=== PATIENT | male | born 1960 | race Caucasian/White ===

== ENCOUNTER 2023-10-05 16:27 | Inpatient (IN) ==
--- NOTE | 2023-10-05 16:59 | Emergency Department Note ---
History of Present Illness General Chief complaint: Illness Stated complaint: LETHARGIC, UNBALANCED, NOT MAKING SENSE Time Seen by Provider: 10/05/23 16:35 Source: family () History of Present Illness Provider complaint: Fever altered mental status Onset (ago): day(s) 1 62-year-old male presents emergency department for fever and altered mental status. reports that the patient has been having increasing fever and confusion since Sunday. She reports that the patient has been having cough and difficulty breathing. No falls or traumas. 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 No hemoptysis. No nausea or vomiting. No diarrhea. Past Med/Surg History Medical History No pertinent past medical history No pertinent family history Surgical History No pertinent past surgical history Social History Smoking Status: Current some day smoker Feels Safe at Home: Yes Physical Exam Vital Signs Vital Signs - 24 hr 10/05/23 16:31 10/05/23 16:31 10/05/23 16:35 Temperature 40.6 C H Temperature Source Oral Pulse Rate 111 H Respiratory Rate 28 H Respiratory Depth Shallow Blood Pressure 122/89 Blood Pressure Mean 100 Pulse Oximetry 89 L 89 L 94 Oxygen Delivery Method Room Air Room Air Oxymask Oxygen Flow Rate 4 Sepsis Recent Fever Within 48 Hours No Sepsis New/Unexplained Change in Mental Status Yes Sepsis Action Taken by Nursing No Action Required 10/05/23 16:35 10/05/23 17:55 Temperature Temperature Source Pulse Rate 95 H Respiratory Rate Respiratory Depth Normal Blood Pressure Blood Pressure Mean Pulse Oximetry 94 Oxygen Delivery Method Oxymask Oxygen Flow Rate 4 Sepsis Recent Fever Within 48 Hours Sepsis New/Unexplained Change in Mental Status Sepsis Action Taken by Nursing Physical Exam GENERAL: Ill-appearing HENT: Exam performed. - Head: Normocephalic and atraumatic. EYES: Conjunctivae and EOM are normal. Pupils are equal, round, and reactive to light. Right eye exhibits no discharge. Left eye exhibits no discharge. No scleral icterus. NECK: Normal range of motion. Neck supple. No JVD present. No carotid bruit present. No rigidity. No tracheal deviation and normal range of motion present. CV: Normal rate, regular rhythm, normal heart sounds and intact distal pulses. There is no peripheral edema. Palpable radial pulses bue. PULM/CHEST: Rhonchi bilaterally. Diminished breath sounds over the right. ABD: The abdomen is soft. There is no tenderness. There is no rebound, no guarding NEURO: Patient is slow to respond to questions but is alert and oriented x 3. Patient does have some mild dysarthria. Difficulty ambulating. Sensation intact. Course Course 1635: The patient was evaluated in room C10. A complete history and physical exam was performed Cardiac monitoring: An order was placed for continuous cardiac monitoring. The monitor shows a rate of 110 with sinus tachycardia rhythm interpreted by me Patient hypoxic on room air. Supplemental oxygen was applied to the patient. Sepsis protocols were initiated. IV fluids and IV Tylenol ordered for the patient. 1745: Vital signs stable supplemental oxygen. Labs show lactic acid within normal limits. Leukocytosis 17. Sodium 126. Chest x-ray does diminish her right sided infiltrate. Patient will be treated with Rocephin and azithromycin IV. 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 Patient will be admitted to the medicine service. 1803: Vital signs stable supplemental oxygen. [facility] hospitalist Leeann zhang working with Dr. Church made aware of patient. Administered Medications Azithromycin 500 mg/ Dextrose 255 mls @ 127.5 mls/hr IV NOW STA Stop: 10/05/23 19:23 Last Admin: 10/05/23 17:53 Dose: 127.5 mls/hr Documented By: CHRIS Discontinued Medications Acetaminophen (Ofirmev) 1,000 mg in 100 mls @ 400 mls/hr IV NOW STA Stop: 10/05/23 16:50 Last Infusion: 10/05/23 18:01 Dose: Infused Documented By: Admin: 10/05/23 17:02 Dose: 400 mls/hr Documented By: CHETAN Sodium Chloride (Nss) 1,000 mls @ 999 mls/hr IV .Q1H1M ONE Stop: 10/05/23 17:36 Last Admin: 10/05/23 17:02 Dose: 999 mls/hr Documented By: CHETAN Ceftriaxone Sodium (Rocephin) 2,000 mg in 50 mls @ 100 mls/hr IV NOW STA Stop: 10/05/23 17:53 Last Admin: 10/05/23 17:54 Dose: 100 mls/hr Documented By: CHRIS Critical Care Time Critical Care Time: Yes Total Critical Care Time: 61 I have personally spent greater than 61 minutes of critical care time in the direct management of this patient. This includes bedside care, interpretation of diagnostic studies, and testing, discussion with consultants, patient, and family members, and other required patient management activities. This 61 minutes is in excess of all separately billable procedures. Medical Decision Making Laboratory Data Attestation: I reviewed the patient's lab results. 10/05/23 16:48 10/05/23 16:48 Lab Results 10/05/23 10/05/23 Range/Units 16:48 16:49 WBC 17.26 H (4.8-10.8) K/ul RBC 4.87 (4.70-6.10) M/uL Hgb 14.5 (14.0-18.0) g/dl Hct 40.6 L (42.0-52.0) % MCV 83.4 (80.0-100.0) fL MCH 29.8 (25.0-34.0) pg MCHC 35.7 (32.0-36.0) g/dL RDW Std Deviation 41.2 (36.4-46.3) fL RDW Coeff of Hunter 13.5 (11.5-14.5) % Plt Count 211 (130-400) K/uL MPV 10.7 (9.4-12.4) fL Immature Gran % (Auto) 2.0 % Neut % (Auto) 92.2 % Lymph % (Auto) 3.2 % Mcculloch % (Auto) 1.7 % Eos % (Auto) 0.4 % Baso % (Auto) 0.5 % Neut # (Auto) 15.91 H (1.40-6.50) K/uL Lymph # (Auto) 0.56 L (1.20-3.40) K/uL Mcculloch # (Auto) 0.29 (0.11-0.59) K/uL Eos # (Auto) 0.07 (0.00-0.50) K/uL Baso # (Auto) 0.09 (0.00-0.20) K/uL Immature Gran # (Auto) 0.34 H (0.01-0.20) K/uL Toxic Vacuolation 2+ PT 11.8 (9.0-12.0) Seconds INR 1.1 (0.9-1.1) APTT 34 H (21-31) Seconds PTT Ratio 1.3 VBG pH 7.45 H (7.36-7.41) VBG pCO2 33 L (38-50) mmHg VBG pO2 32 mmHg VBG HCO3 23 mmol/L VBG O2 Saturation 61.1 % VBG Base Excess -0.4 mEq/L Sodium 126 L (136-145) mmol/L Potassium 3.6 (3.5-5.1) mmol/L Chloride 92 L (98-107) mmol/L Carbon Dioxide 23 (21-32) mmol/L Anion Gap 11 (3-11) BUN 21 (6-23) mg/dl Creatinine 1.25 (0.6-1.4) mg/dl Est Cr Clr Drug Dosing 62.8 ml/min Est GFR ( Amer) 71.6 ml/min Est GFR (Non-Af Amer) 61.8 ml/min BUN/Creatinine Ratio 16.8 (10-20) Glucose 137 H (70-99(Fasting)) mg/dl Lactate 2.0 (0.4-2.0) mmol/L Calcium 8.6 (8.6-10.3) mg/dl Magnesium 2.0 (1.7-2.4) mg/dl Total Bilirubin 0.7 (0.2-1.0) mg/dl Direct Bilirubin 0.3 H (0-0.2) mg/dl AST 71 H (13-39) U/L ALT 35 (7-52) U/L Alkaline Phosphatase 49 (34-104) U/L Troponin I High Sens 68.1 H* (0-20) pg/ml Total Protein 7.4 (6.0-8.3) gm/dl Albumin 3.6 (3.4-5.0) gm/dl Urine Color Dark Yellow Urine Appearance Cloudy A (Clear) Urine pH 5.5 (4.5-7.5) Ur Specific [place] 1.026 (1.000-1.030) Urine Protein 3+ H (Negative) Urine Glucose (UA) Negative (Negative) Urine Ketones Trace H (Negative) Urine Blood 3+ H (Negative) Urine Nitrite Negative (Negative) Urine Bilirubin 1+ H (Negative) Urine Urobilinogen Negative (Negative) Ur Leukocyte Esterase Negative (Negative) Urine WBC (Auto) 0-5 (0-5) /hpf Urine RBC (Auto) 6-10 H (0-2) /hpf U Hyaline Cast (Auto) 3-5 H (0-2) /lpf U Epithel Cells (Auto) 0-2 (0-2) /hpf Urine Bacteria (Auto) None Seen (None Seen) Hyaline Casts Present A (None Presnt) /lpf Urine Mucus Present A (None Prsent) Anaplasma Smear See Comment Babesia Smear See Comment Imaging Data Attestation: I personally reviewed and interpreted this imaging study as follows: My Impression: Chest x-ray: Right lower lobe infiltrate Radiologist's Impression: Chest X-Ray 10/05/23 16:35 SINGLE VIEW CHEST CLINICAL HISTORY: Sepsis. FINDINGS: An AP, portable, upright chest radiograph is obtained. No prior studies are available for comparison at the time of dictation. The heart is enlarged noting atherosclerotic calcification of the thoracic aorta. There is pulmonary vascular congestion. There is airspace consolidation at the right lung base. No large pleural effusion or pneumothorax is seen. The bony thorax is grossly intact. IMPRESSION: 1. Airspace consolidation at the right lung base is typical for pneumonia/aspiration pneumonitis. Clinical correlation will be required and radiographic follow-up to resolution is recommended. 2. Cardiomegaly with pulmonary vascular congestion. ACT 112: Negative or not required by law. Electronically signed by: Mannie Maurer M.D. 10/05/2023 5:[address] 10/05/23 16:55 CT SCAN OF THE BRAIN WITHOUT IV CONTRAST CLINICAL HISTORY: Change in mental status. Lethargy. COMPARISON STUDY: No priors. TECHNIQUE: Unenhanced axial CT scan of the brain is performed from the vertex to the skull base. A dose lowering technique was utilized adhering to the principles of ALARA. CT DOSE: 625.8 mGy.cm FINDINGS: Brain parenchyma: There is age-related involutional change noting mild subcortical and periventricular microangiopathic disease. There is no hemorrhage, mass effect, or evidence of acute territorial ischemia by CT criteria. Huerta-white matter differentiation is preserved. No extra-axial fluid collection is seen. Ventricles, sulci, cisterns: Prominent secondary to involutional change. Intracranial vasculature: There is atherosclerotic calcification of the cavernous carotid arteries. Calvarium: Unremarkable. Sinuses and mastoids: There is mild mucosal thickening within the ethmoid sinuses. The remaining visualized paranasal sinuses are clear. The mastoid air cells are well pneumatized. Orbits: The bony orbits are grossly intact. IMPRESSION: There is no hemorrhage, mass effect, or evidence of acute territorial ischemia by CT criteria. ACT 112: Negative or not required by law. Electronically signed by: Mannie Maurer M.D. 10/05/2023 5:33 PM ECG Data Attestation: I personally reviewed and interpreted this ECG as follows: Rate (beats per minute): 93 Rhythm: + normal sinus ECG Intervals/blocks: + Normal QRS, + Normal CO and + Normal QT-c ECG ST segments: + Normal ST segments MDM Narrative 1635: The patient was evaluated in room C10. A complete history and physical exam was performed Cardiac monitoring: An order was placed for continuous cardiac monitoring. The monitor shows a rate of 110 with sinus tachycardia rhythm interpreted by me Patient hypoxic on room air. Supplemental oxygen was applied to the patient. Sepsis protocols were initiated. IV fluids and IV Tylenol ordered for the patient. 1745: Vital signs stable supplemental oxygen. Labs show lactic acid within normal limits. Leukocytosis 17. Sodium 126. Chest x-ray does diminish her right sided infiltrate. Patient will be treated with Rocephin and azithromycin IV. 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 Patient will be admitted to the medicine service. 1803: Vital signs stable supplemental oxygen. [facility] hospitalist Leeann zhang working with Dr. Church made aware of patient. Impression & Plan Hypoxia, Pneumonia, Acute hyponatremia, Elevated troponin Discharge Plan Visit Data Chief Complaint: Illness Stated Complaint: LETHARGIC, UNBALANCED, NOT MAKING SENSE ED Provider: Lc Lynch Discharge Problem: Hypoxia, Pneumonia, Acute hyponatremia, Elevated troponin Patient Disposition: Admitted As Inpatient Forms Stand Alone Forms: [facility] Referrals Referrals: PCP,NO [Primary Care Provider] - Discharge Problem: Pneumonia Qualifiers: Pneumonia type: due to unspecified organism Laterality: right Lung location: u nspecified part of lung Qualified Code(s): J18.9 - Pneumonia, unspecified organism
[2023-10-05] MEDS: SODIUM CHLORIDE 0.9% 1,000 ML IV ONE (17:02)
[2023-10-05] MEDS: ACETAMINOPHEN 1,000 MG/100 ML VIAL IV STA (17:02)
[2023-10-05 17:08] LABS: Base Excess VBG -0.4 mEq/L; HCO3 VBG 23 mmol/L; Oxygen Saturation VBG 61.1 %; PCO2 VBG 33 mmHg (38-50); PO2 VBG 32 mmHg; pH VBG 7.45 (7.36-7.41)
--- NOTE | 2023-10-05 17:08 | XRay Report ---
SINGLE VIEW CHEST CLINICAL HISTORY: Sepsis. FINDINGS: An AP, portable, upright chest radiograph is obtained. No prior studies are available for c omparison at the time of dictation. The heart is enlarged noting atherosclerotic calcification of the thoracic aorta. There is pulmonary vascular congestion. There is airspace consolidation at the right lung base. No large pleural effusion or pneumothorax is seen. The bony thorax is grossly intact. IMPRESSION: 1. Airspace consolidation at the right lung base is typical for pneumonia/aspiration pneumonitis. Cli nical correlation will be required and radiographic follow-up to resolution is recommended. 2. Cardiomegaly with pulmonary vascular congestion. ACT 112: Negative or not required by law. Electronically signed by: Mannie Maurer M.D. 10/05/2023 5:05 PM
[2023-10-05 17:10] LABS: Hematocrit (blood only) 40.6 % (42.0-52.0); Hemoglobin 14.5 g/dl (14.0-18.0); Mean Corpuscular Hemoglobin 29.8 pg (25.0-34.0); Mean Corpuscular Hgb Conc 35.7 g/dL (32.0-36.0); Mean Corpuscular Volume 83.4 fL (80.0-100.0); Mean Platelet Volume 10.7 fL (9.4-12.4); Platelet Count 211 K/uL (130-400); RDW Coefficient of Variation 13.5 % (11.5-14.5); RDW Standard Deviation 41.2 fL (36.4-46.3); Red Blood Count 4.87 M/uL (4.70-6.10); White Blood Count 17.26 K/ul (4.8-10.8)
[2023-10-05 17:21] LABS: INR 1.1 (0.9-1.1); Partial Thromboplastin Ratio 1.3; Partial Thromboplastin Time 34 Seconds (21-31); Prothrombin Time 11.8 Seconds (9.0-12.0)
[2023-10-05 17:34] LABS: Basophils # (auto) 0.09 K/uL (0.00-0.20); Basophils % (auto) 0.5 %; Eosinophils # (auto) 0.07 K/uL (0.00-0.50); Eosinophils % (auto) 0.4 %; Immature Granulocytes # (auto) 0.34 K/uL (0.01-0.20); Lymphocytes # (auto) 0.56 K/uL (1.20-3.40); Lymphocytes % (auto) 3.2 %; Monocytes # (auto) 0.29 K/uL (0.11-0.59); Monocytes % (auto) 1.7 %; Neutrophils # (auto) 15.91 K/uL (1.40-6.50); Neutrophils % (auto) 92.2 %; Toxic Vacuolation 2+
--- NOTE | 2023-10-05 17:35 | CT Scan Report ---
CT SCAN OF THE BRAIN WITHOUT IV CONTRAST CLINICAL HISTORY: Change in mental status. Lethargy. COMPARISON STUDY: No priors. TECHNIQUE: Unenhanced axial CT scan of the brain is performed from the vertex to the skull base. A do se lowering technique was utilized adhering to the principles of ALARA. CT DOSE: 625.8 mGy.cm FINDINGS: Brain parenchyma: There is age-related involutional change noting mild subcortical and periventricula r microangiopathic disease. There is no hemorrhage, mass effect, or evidence of acute territorial isc hemia by CT criteria. Huerta-white matter differentiation is preserved. No extra-axial fluid collection is seen. Ventricles, sulci, cisterns: Prominent secondary to involutional change. Intracranial vasculature: There is atherosclerotic calcification of the cavernous carotid arteries. Calvarium: Unremarkable. Sinuses and mastoids: There is mild mucosal thickening within the ethmoid sinuses. The remaining visu alized paranasal sinuses are clear. The mastoid air cells are well pneumatized. Orbits: The bony orbits are grossly intact. IMPRESSION: There is no hemorrhage, mass effect, or evidence of acute territorial ischemia by CT nicho powers. ACT 112: Negative or not required by law. Electronically signed by: Mannie Maurer M.D. 10/05/2023 5:33 PM
[2023-10-05 17:36] LABS: Albumin Level 3.6 gm/dl (3.4-5.0); BUN Creatinine Ratio 16.8 (10-20); Bilirubin Direct 0.3 mg/dl (0-0.2); Bilirubin,Total 0.7 mg/dl (0.2-1.0); Calcium 8.6 mg/dl (8.6-10.3); Creatinine Clr Calc Pharmacy 62.8 ml/min; Est GFR (African American) 71.6 ml/min; Est GFR (Non-African American) 61.8 ml/min; Potassium 3.6 mmol/L (3.5-5.1); Total Protein 7.4 gm/dl (6.0-8.3)
[2023-10-05 17:48] LABS: Troponin I High Sensitivity 68.1 pg/ml (0-20)
[2023-10-05] MEDS: AZITHROMYCIN 500 MG in DEXTROSE 5% 250 ML IV STA (17:53)
[2023-10-05] MEDS: cefTRIAXone SODIUM 2,000 MG/50 ML BAG IV STA (17:54)
[2023-10-05 17:56] LABS: Appearance Urine Cloudy (Clear); Bacteria Urine Automated None Seen (None Seen); Bilirubin Urine 1+ (Negative); Blood Urine 3+ (Negative); Color Urine Dark Yellow; Epithelial Cell Urine Auto 0-2 /hpf (0-2); Glucose Urine UA Negative (Negative); Hyaline Casts Urine Present /lpf (None Presnt); Ketones Urine Trace (Negative); Leukocyte Esterase Urine Negative (Negative); Mucus Urine Present (None Prsent); Nitrite Urine Negative (Negative); Protein Urine 3+ (Negative); Specific Gravity Urine 1.026 (1.000-1.030); Urobilinogen Urine Negative (Negative); WBC Urine Automated 0-5 /hpf (0-5); pH Urine 5.5 (4.5-7.5)
[2023-10-05 18:16] LABS: Adenovirus PCR Not Detected (NotDetected); Bordetella parapertussis PCR Not Detected (NotDetected); Bordetella pertussis PCR Not Detected (NotDetected); Chlamydia pneumoniae PCR Not Detected (NotDetected); Coronavirus 229E PCR Not Detected (NotDetected); Coronavirus CoV-2 (COVID19)PCR Not Detected (NotDetected); Coronavirus HKU1 PCR Not Detected (NotDetected); Coronavirus NL63 PCR Not Detected (NotDetected); Coronavirus OC43PCR Not Detected (NotDetected); Human Metapneumovirus PCR Not Detected (NotDetected); Influenza A PCR Not Detected (NotDetected); Influenza B PCR Not Detected (NotDetected); Mycoplasma pneumoniae PCR Not Detected (NotDetected); Parainfluenza Virus 1 PCR Not Detected (NotDetected); Parainfluenza Virus 2 PCR Not Detected (NotDetected); Parainfluenza Virus 3 PCR Not Detected (NotDetected); Parainfluenza Virus 4 PCR Not Detected (NotDetected); Respiratory Syncytial VirusPCR Not Detected (NotDetected); Rhinovirus/Enterovirus PCR Not Detected (NotDetected)
[2023-10-05 19:59] LABS: Base Excess ABG -4.4 mEq/L (-9-1.8); HCO3 ABG 18 mmol/L (19-24); Oxygen Saturation ABG 95.7 % (90-95); PCO2 ABG 27 mmHg (35-46); PO2 ABG 67 mmHg (80-95); pH ABG 7.44 (7.35-7.45)
[2023-10-05 20:17] LABS: Allen Test Pos (Pos)
[2023-10-05 20:22] LABS: Amphetamines+Metham, Urine Neg (Neg); Barbiturates, Urine Neg (Neg); Benzodiazepine, Urine Neg (Neg); Cocaine, Urine Neg (Neg); MDMA (Ecstacy), Urine Neg (Neg); Marijuana, Urine Neg (Neg); Methadone, Urine Neg (Neg); Opiate, Urine Neg (Neg); Phencyclidine, Urine Neg (Neg)
[2023-10-05] MEDS: SODIUM CHLORIDE 0.9% 1,000 ML IV SCH (21:56)
--- NOTE | 2023-10-05 22:10 | History & Physical Report ---
Date of Service October 05, 2023 Assessment & Plan (1) Sepsis: (2) Hypoxia: (3) Pneumonia: (4) Acute metabolic encephalopathy: Plan: Admit to telemetry Patient presenting from home for evaluation of altered mental status In the ED, found to be significantly febrile with temp 40.6, hypoxic at 89%, currently on 4 L OxyMask Labs show WBC 17 K, procalcitonin 8.1, lactic acid 2.0. HR and BP stable. Patient very slow to respond however appears oriented. Denies headache, no nuchal rigidity noted on exam. ABG -pH 7.4, pCO2 27, pO2 67, HCO3 18 consistent with hyperventilation Check CK Fever improved with Tylenol CXR shows right basilar pneumonia Bio fire negative Anaplasma and Babesia smears negative for inclusion bodies S/p ceftriaxone and azithromycin in the ED, will continue with however low threshold to broaden if recurring fever Given severity of illness, will repeat CXR in the a.m. Follow blood cultures (5) Acute hyponatremia: Plan: Na+ 126 Likely hypovolemic hyponatremia in the setting of acute illness/fever Received 1 L NSS in ED, recheck BMP and check q4h (6) Elevated troponin: Plan: HS troponin 68.1 -> 75.5 Likely demand ischemia in the setting of acute illness Check resting echo DVT PROPHYLAXIS SQ Lovenox Patient seen collaboration with Dr. Church. I spent a total of 75 minutes coordinating, documenting, and providing care for this patient excluding time spent in the performance of separately billed services. This included personally reviewing all current laboratories and imaging studies, medication reconciliation, outpatient chart review, and discussion with specialists. Admission and Anticipated Discharge Date Admission Date: October 05, 2023 History of Present Illness Chief Complaint: Confusion Primary Care Provider: NO PCP 62-year-old male without significant past medical history who presents to the ED for evaluation of confusion. History is obtained from the patient and who is the bedside. No outpatient records to review. Patient is a poor historian. Per , patient started to feel ill about 4 days ago. 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 He was able to work half day Sunday however came home early. reports that he has been very fatigued since that time and spending most of his time in bed. Mostly drinking Gatorade, has not had much food. Today, patient was noted to be confused. He was brought to the ED for further evaluation. No other symptoms reported. Denies vomiting and diarrhea. No urinary symptoms. In the ED, patient was significantly febrile at 40.6. Labs show WBC 17 K, Na+ 126, HS troponin 68 -> 75, procalcitonin 8.1. CXR showed Airspace consolidation at the right lung base is typical for pneumonia/aspiration pneumonitis. Patient was given IV Tylenol, azithromycin, ceftriaxone, IVF. Allergies Allergy/AdvReac Type Severity Reaction Status Date / Time No Known Allergies Allergy Unverified 10/05/23 18:53 Home Medications Medication Instructions Recorded Confirmed Type No Known Home Medications 10/05/23 10/05/23 History Past Med/Surg History Medical History No pertinent past medical history No pertinent family history Surgical History No pertinent past surgical history Social History Smoking Status: Former smoker Tobacco Type: Cigarettes Smoking End Date: 2008; Second Hand Exposure: No; Tobacco Cessation Education Requested by Patient: No Hx Alcohol Use: No Hx Substance Use: No Preferred Language: Lao Communication Ability: Effective Slunk Skinner Required: No Beliefs That Will Affect Care: None Current Living Situation: Spouse and Family Current Living Situation Comment: Patient lives at home with his and son Other Information That Helps Us Care for You: No Feels Safe at Home: Yes Safety Concerns: Feels Safe At This Time Assistive Devices: None Physical Exam Constitutional: WD/WN, vitals as above + ill appearing Eyes: PERRL, conjunctivae normal, anicteric sclerae ENMT: Ears: no external ear abnormality Nose: no external nose abnormality Mouth: + dry oral mucous membranes Neck: no nuchal rigidity Respiratory: + cough (Moist, nonproductive) Auscul tation: + rhonchi (Bilaterally throughout all lung perdomo) Tachypnea Cardiovascular: Rate/Rhythm: regular rate and regular rhythm Vessels: normal peripheral pulses Extremities: no edema Gastrointestinal (Abdomen): normal bowel sounds, soft, nontender, no hepatosplenomegaly Musculoskeletal: no cyanosis or clubbing, extremities motor strength 5/5 Skin: no rashes Diaphoretic Neurologic: Patient very slow to respond however does appear to be oriented, no gross focal deficit noted Results & Data Results & Data Vital Signs (Past 12 Hours) Vital Signs Temp Pulse Pulse Resp BP BP Pulse Ox 10/05/23 19:30 37.6 C H 74 29 H 103/65 91 10/05/23 19:00 37.9 C H 79 39 H 105/60 93 10/05/23 18:04 39.0 C H 85 24 111/60 96 10/05/23 17:55 95 H 10/05/23 16:35 94 10/05/23 16:35 94 10/05/23 16:31 89 L 10/05/23 16:31 40.6 C H 111 H 28 H 122/89 89 L O2 Del Method O2 Flow Rate 10/05/23 19:30 Oxymask 4 10/05/23 19:00 Room Air 10/05/23 18:04 Room Air 10/05/23 17:55 10/05/23 16:35 Oxymask 4 10/05/23 16:35 Oxymask 4 10/05/23 16:31 Room Air 10/05/23 16:31 Room Air Laboratory Results Short CBC 10/05/23 Range/Units 16:48 WBC 17.26 H (4.8-10.8) K/ul Hgb 14.5 (14.0-18.0) g/dl Hct 40.6 L (42.0-52.0) % Plt Count 211 (130-400) K/uL BMP 10/05/23 16:48 Sodium 126 L Potassium 3.6 Chloride 92 L Carbon Dioxide 23 BUN 21 Creatinine 1.25 Glucose 137 H Calcium 8.6 Liver Function 10/05/23 Range/Units 16:48 Total Bilirubin 0.7 (0.2-1.0) mg/dl Direct Bilirubin 0.3 H (0-0.2) mg/dl AST 71 H (13-39) U/L ALT 35 (7-52) U/L Alkaline Phosphatase 49 (34-104) U/L Albumin 3.6 (3.4-5.0) gm/dl Urine 10/05/23 Range/Units 16:49 Urine Color Dark Yellow Urine Appearance Cloudy A (Clear) Urine pH 5.5 (4.5-7.5) Ur Specific [place] 1.026 (1.000-1.030) Urine Protein 3+ H (Negative) Urine Glucose (UA) Negative (Negative) Diagnostic Findings Chest X-Ray 10/05/23 16:35 SINGLE VIEW CHEST CLINICAL HISTORY: Sepsis. FINDINGS: An AP, portable, upright chest radiograph is obtained. No prior studies are available for comparison at the time of dictation. The heart is enlarged noting atherosclerotic calcification of the thoracic aorta. There is pulmonary vascular congestion. There is airspace consolidation at the right lung base. No large pleural effusion or pneumothorax is seen. The bony thorax is grossly intact. IMPRESSION: 1. Airspace consolidation at the right lung base is typical for pneumonia/aspiration pneumonitis. Clinical correlation will be required and radiographic follow-up to resolution is recommended. 2. Cardiomegaly with pulmonary vascular congestion. ACT 112: Negative or not required by law. Electronically signed by: Mannie Maurer M.D. 10/05/2023 5:[address] 10/05/23 16:55 CT SCAN OF THE BRAIN WITHOUT IV CONTRAST CLINICAL HISTORY: Change in mental status. Lethargy. COMPARISON STUDY: No priors. TECHNIQUE: Unenhanced axial CT scan of the brain is performed from the vertex to the skull base. A dose lowering technique was utilized adhering to the principles of ALARA. CT DOSE: 625.8 mGy.cm FINDINGS: Brain parenchyma: There is age-related involutional change noting mild subcortical and periventricular microangiopathic disease. There is no hemorrhage, mass effect, or evidence of acute territorial ischemia by CT criteria. Huerta-white matter differentiation is preserved. No extra-axial fluid collection is seen. Ventricles, sulci, cisterns: Prominent secondary to involutional change. Intracranial vasculature: There is atherosclerotic calcification of the cavernous carotid arteries. Calvarium: Unremarkable. Sinuses and mastoids: There is mild mucosal thickening within the ethmoid sinuses. The remaining visualized paranasal sinuses are clear. The mastoid air cells are well pneumatized. Orbits: The bony orbits are grossly intact. IMPRESSION: There is no hemorrhage, mass effect, or evidence of acute territorial ischemia by CT criteria. ACT 112: Negative or not required by law. Electronically signed by: Mannie Maurer M.D. 10/05/2023 5:33 PM Code Status & VTE Plan VTE Prophylaxis Plan VTE Prophylaxis will be ordered: Yes Supervising Physician Co-Signing Physician Notes I have seen and examined the patient and have discussed the case with the provider above. I have reviewed the advanced practitioner's documentation, and I agree with, and take responsibility for that plan of care. 62 yo M with no known chronic medical problems presents with acute confusion and fevers. He was found to have pneumonia. He was given Tylenol and defervesced. He is able to answer orientation questions appropriately after initial ER treatments, although he is still very slow to respond. He denies headache or neck stiffness. He reports poor oral intake. Na is 126 and labs overall reflect dehydration. WBC 17 with left shift. Trop HS is elevated to 68.1-->75.1. Procalcitonin 8.16. On exam he is ill appearing, WNWD Slow to respond to questions Generalized weakness without focal deficits Speech intact/memory and language intact CV: reg rate and rhythm, S1/2 heard, no murmur, no edema Lungs: coarse rhonchi throuhgout Skin: diaphoretic Abd: soft NTND Labs/imaging/EKG reviewed. 1. Sepsis and acute respiratory failure 2/2 pneumonia. Meningitis considered but patient denies headache or neck stiffness. Cont Rocephin/azithromycin. No MRSA or pseudomonas risk factors. Cont oxygen supplementation as needed. 2. Acute metabolic encephalopathy 2/2 above. Utox neg, also. Starting to clear up with therapy. 3. Hyponatremia/Hypokalemia-poor PO intake, clinical dehydration 4. Elevated trop 2/2 demand ischemia in setting of sepsis. Echo pending. DO Ranjit (3) Pneumonia Laterality: right Lung location: unspecified part of lung Pneumonia type: due to unspecified organism Qualified Code(s): J18.9 - Pneumonia, unspecified organism
[2023-10-05 22:27] LABS: Calcium 7.7 mg/dl (8.6-10.3); Creatinine Clr Calc Pharmacy 81.3 ml/min; Est GFR (African American) 93.7 ml/min; Est GFR (Non-African American) 80.9 ml/min
[2023-10-05] MEDS: POTASSIUM CHLORIDE 20 MEQ/15 ML UDC PO ONE (23:14)
[2023-10-06 01:11] LABS: BUN Creatinine Ratio 18.9 (10-20); Calcium 7.7 mg/dl (8.6-10.3); Creatinine Clr Calc Pharmacy 85.6 ml/min; Est GFR (African American) 99.7 ml/min; Est GFR (Non-African American) 86.1 ml/min; Potassium 3.8 mmol/L (3.5-5.1)
[2023-10-06] MEDS: LEVALBUTEROL 1.25 MG/3 ML NEB NEB STA (04:07)
[2023-10-06] MEDS: IPRATROPIUM BROMIDE NEB SOLN 0.02% 0.5MG/2.5ML VIAL INH STA (04:07)
[2023-10-06] MEDS: FUROSEMIDE INJ 20 MG/2 ML VIAL IV ONE (04:08)
[2023-10-06] MEDS: POTASSIUM CHLORIDE / WTR 10 MEQ/100 ML PLCT IV SCH (04:12)
[2023-10-06] MEDS: ACETAMINOPHEN 1,000 MG/100 ML VIAL IV STA (04:14)
--- NOTE | 2023-10-06 04:18 | Communication Note ---
Date of Service: October 06, 2023 Patient noted to be febrile, confused, lethargic, tachypneic and with shallow breathing as per RN. Patient witnessed to have a choking episode with liquid intake at home during illness as per . Patient unable to answer query regarding chest pain. 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
[2023-10-06] MEDS: AMPICILLIN/SULBACTAM SOD 3,000 MG in SODIUM CHLOR 0.9% MINI-B 100 ML IV SCH (04:31)
[2023-10-06] MEDS: methylPREDNISolone 20 MG in SYRINGE 0 ML IV ONE (04:31)
[2023-10-06 04:39] LABS: Hematocrit (blood only) 38.9 % (42.0-52.0); Hemoglobin 13.6 g/dl (14.0-18.0); Mean Corpuscular Volume 82.9 fL (80.0-100.0); Mean Platelet Volume 10.7 fL (9.4-12.4); Platelet Count 203 K/uL (130-400); RDW Coefficient of Variation 13.7 % (11.5-14.5); RDW Standard Deviation 41.1 fL (36.4-46.3); Red Blood Count 4.69 M/uL (4.70-6.10)
[2023-10-06 04:46] LABS: Base Excess ABG -4.5 mEq/L (-9-1.8); HCO3 ABG 17 mmol/L (19-24); Oxygen Saturation ABG 96.4 % (90-95); PCO2 ABG 23 mmHg (35-46); PO2 ABG 71 mmHg (80-95); pH ABG 7.48 (7.35-7.45)
[2023-10-06 04:54] LABS: Allen Test Pos (Pos)
[2023-10-06 04:56] LABS: Basophils % (auto) 0.7 %; Echinocytes 1+; Eosinophils # (auto) 0.05 K/uL (0.00-0.50); Eosinophils % (auto) 0.3 %; Immature Granulocytes # (auto) 0.36 K/uL (0.01-0.20); Immature Granulocytes % (auto) 2.4 %; Lymphocytes # (auto) 0.37 K/uL (1.20-3.40); Lymphocytes % (auto) 2.4 %; Monocytes # (auto) 0.17 K/uL (0.11-0.59); Monocytes % (auto) 1.1 %; Neutrophils # (auto) 14.25 K/uL (1.40-6.50); Neutrophils % (auto) 93.1 %; Toxic Vacuolation 1+
[2023-10-06 05:03] LABS: Bilirubin Direct 0.3 mg/dl (0-0.2); Bilirubin,Total 0.5 mg/dl (0.2-1.0); Calcium 7.7 mg/dl (8.6-10.3); Creatinine Clr Calc Pharmacy 95.6 ml/min; Magnesium 1.9 mg/dl (1.7-2.4); Potassium 3.8 mmol/L (3.5-5.1); Total Protein 6.3 gm/dl (6.0-8.3)
[2023-10-06 05:15] LABS: Troponin I High Sensitivity 170.4 pg/ml (0-20)
[2023-10-06 05:36] LABS: Thyroid Stimulating Hormone 0.559 uIu/ml (0.300-4.500)
[2023-10-06] MEDS: MAGNESIUM SULFATE / D5W 1 GM/100 ML BAG IV ONE (05:37)
[2023-10-06] MEDS: IPRATROPIUM BROMIDE NEB SOLN 0.02% 0.5MG/2.5ML VIAL INH SCH (07:09)
[2023-10-06] MEDS: LEVALBUTEROL 1.25 MG/3 ML NEB NEB SCH (07:09)
[2023-10-06] MEDS: DOXYCYCLINE HYCLATE 100 MG in DEXTROSE 5% MINI-B 100 ML IV STA (07:35)
--- NOTE | 2023-10-06 07:36 | XRay Report ---
SINGLE VIEW CHEST CLINICAL HISTORY: Dyspnea FINDINGS: An AP, portable, upright chest radiograph is compared to study dated 10/05/2023. The heart is enlarged noting atherosclerotic calcification of the thoracic aorta. Pulmonary vascular congestion h as improved. Airspace consolidation is again seen at the right lung base. No large pleural effusion o r pneumothorax is identified. The bony thorax is grossly intact. IMPRESSION: 1. Airspace consolidation is again seen at the right lung base. This is typical for pneumonia/aspirat ion pneumonitis. Radiographic follow-up to resolution is recommended. 2. Cardiomegaly. Pulmonary vascular congestion has improved from yesterday. ACT 112: Negative or not required by law. Electronically signed by: Mannie Maurer M.D. 10/06/2023 7:35 AM
[2023-10-06 08:26] LABS: Troponin I High Sensitivity 199.9 pg/ml (0-20)
[2023-10-06] MEDS: SODIUM CHLOR 7% 4 ML NEB NEB SCH (09:41)
--- NOTE | 2023-10-06 09:48 | CT Scan Report ---
CT SCAN OF THE CHEST WITHOUT IV CONTRAST CLINICAL HISTORY: Pneumonia. Hypoxia. COMPARISON STUDY: Chest radiograph dated 10/06/2023. TECHNIQUE: CT scan of the thorax was performed from the thoracic inlet to the upper abdomen. Images are reviewed in the axial, sagittal, and coronal planes. IV contrast was not administered for this ex amination as per the referring clinician. A dose lowering technique was utilized adhering to the nolberto brooke of [place]. CT DOSE: 476.59 mGy.cm FINDINGS: Thyroid: Imaged portions of the thyroid gland are normal in size and attenuation. Thoracic aorta: There is atherosclerotic calcification of the thoracic aorta, which is normal in manny jennifer and demonstrates standard 3-vessel arch anatomy. Heart: The heart is enlarged and without pericardial effusion. The coronary arteries are densely calc ified. Lungs and pleural spaces: There is dense airspace consolidation throughout the right lower lobe. Mild er patchy airspace consolidation is seen in the upper lobes. There are small right and trace left ple ural effusions. Dependent atelectasis is seen on the left. The trachea and appears clear. Debris is n oted in the right mainstem bronchus. Foci of mucus plugging/intraluminal debris are seen in the lower lobe airways. Mediastinum: There are mildly enlarged mediastinal lymph nodes. Pretracheal nodes measure up to 14 mm in short axis and a precarinal node measures 16 mm in short axis. Misty: Not well assessed without IV contrast. Axillae: There is no axillary lymphadenopathy. Upper abdomen: There is trace perisplenic ascites. A small hiatal hernia is noted. Skeletal structures: The skeletal structures are osteopenic. There is a minimal chronic superior endp late compression deformity of T7. No lytic or blastic bony lesions are seen. IMPRESSION: 1. There is dense airspace consolidation throughout the right lower lobe, with milder patchy airspace consolidation seen in the upper lobes. This is consistent with multifocal pneumonia/aspiration pneum onitis. Radiographic follow-up to resolution is recommended. 2. Small right and trace left pleural effusions. 3. Cardiomegaly. 4. Mildly enlarged mediastinal lymph nodes are likely reactive. 5. There is fluid/debris within the right mainstem bronchus, as well as within the lower lobe airways . Correlate clinically for evidence of aspiration. 6. Trace perisplenic ascites. 7. Additional findings as above. ACT 112: Negative or not required by law. Electronically signed by: Mannie Maurer M.D. 10/06/2023 9:46 AM
--- NOTE | 2023-10-06 09:53 | Cardiology Consultation ---
Date of Consultation October 06, 2023 Assessment & Plan (1) Sepsis: (2) Hypoxia: (3) Pneumonia: (4) Acute hyponatremia: (5) Elevated troponin: Plan Assessment: 62 year old male admitted for one week of worsening shortness of breath, fevers and alteration in mental status. Chest xray and CT chest confirm multifocal pneumonia with signficant consolidation in the right lung base. labs suggestive of sepsis, blood cultures pending. Troponin elevation with normal EKG. Plan: Patient is acutely ill with pneumonia and likely sepsis. Continued management of acute illness by primary team. supplementing well on O2 therapy at 4lpm via nasal cannula. Troponin elevation noted and will continue to trend to peak. EKG demonstrates NSR with no acute ST-T wave abnormality to suggest acute ischemia and patient denies any symptoms. Suspect that troponin elevation is demand ischemia due to sepsis state. We will trend troponin and obtain echocardiogram to assess overall structure, function and for any wall motion abnormality. We do not recommend starting a Heparin gtt at this time in the setting of sepsis unless there is an acute cardiac change. Continue to monitor closely on telemetry. No signs of volume overload and would recommend gentle IV fluid hydration along with antibiotic protocol for pneumonia. Serum sodium continues to improve, continue to monitor labs closely. further recommendations pending echocardiogram as appropriate. Case has been discussed with Dr. Koo. Further recommendations regarding plan of care as per his assessment. I spent a total of 40 minutes on the date of service in preparation, delivery, documentation of the care provided to the patient excluding any time spent in the performance of separately billed services. PARMJIT Casiano [facility] Cardiology [facility] Supervising Physician Co-Signing Physician Notes I have seen and examined the patient and have discussed the case with the provider above. I have reviewed the advanced practitioner's documentation, and I agree with, and take responsibility for that plan of care. 62 y/o male with no significant past medical history presented to [facility] with 1 week history of fever, chills, malaise and weakness. Patient is a poor historian. He denies any prior history of CAD/CHF. He was found to have multifocal PNA on chest CT. Cardiology was consulted for elevated troponins. Patient denies chest pain, dyspnea, orthopnea, PND, palpitations, or syncope. His ECG showed NSR with no acute ischemic changes. Troponins are trending up from 68 to 199. BP 113/67 HR 61 RR 19 Temp 36.7 02 sat 95% 3L/min Gen: Appears in mild distress, AAOx3 HEENT: No JVD CVS: Nl S1 S2, no murmurs Chest: Decreased breath sounds bilaterally Rhonchi R>L Abd: Soft NT, ND, + BS Ext: No edema Plan: Patient's elevated troponins are most likely secondary to demand ischemia in the setting of sepsis/multifocal PNA. Patient denies chest pain and ECG shows no acute ischemic changes. Will need echocardiogram (will review images once available). At some patient will need an ischemic evaluation but for now continue supportive care for his sepsis and pneumonia. We can start aspirin and statin once stable from his underlying sepsis/pneumonia. History of Present Illness Reason for Consultation: Elevated Troponin Requesting Physician: Blane hartley Attending Physician: Vish Aleman MD History of Present Illness HPI: Patient is a 62 year old male with no past medical history that presented to the ED yesterday for several days of fever, cough, worsening shortness of breath, lethargy and altered mental status. EKG at time of arrival demonstrates NSR, Right axis deviation, low voltage. Rate 93bpm, repeat EKG improved tracing. NSR no acute St-T wave abnormality Chest xray yesterday as follows: IMPRESSION: 1. Airspace consolidation at the right lung base is typical for pneumonia/aspiration pneumonitis. Clinical correlation will be required and r adiographic follow-up to resolution is recommended. 2. Cardiomegaly with pulmonary vascular congestion. Repeat CXR this morning remains unchanged. CT Chest this morning is pending. Labs demonstrate elevated white count, elevated procalcitonin 8.16, BNP 247. Troponin as follows: 68.1/ 75.5/170.4/199.9 For echocardiogram today. Patient was seen and examined at bedside. He is alert and oriented x3, but slightly delayed in his responses and admits to knowing things, but just feeling confused. He denies any chest pain, pressure or palpitations. no presyncope or syncope. No edema. Review of telemetry demonstrates NSR with no ectopy or arrhythmia. Patient denies any past medical concerns. Does not follow with a physician on a regular basis. Denies any prior cardiac history. Denies any history of chest pain, dyspnea or other anginal like symptoms prior to illness. He denies any family history of coronary disease. Allergies Allergy/AdvReac Type Severity Reaction Status Date / Time No Known Allergies Allergy Unverified 10/05/23 18:53 Home Medications Medication Instructions Recorded Confirmed Type No Known Home Medications 10/05/23 10/05/23 History Patient History Medical History No pertinent past medical history No pertinent family history Surgical History No pertinent past surgical history Social History Smoking Status: Former smoker Tobacco Type: Cigarettes Smoking End Date: 2008; Second Hand Exposure: No; Tobacco Cessation Education Requested by Patient: No Hx Alcohol Use: No Hx Substance Use: No Preferred Language: Nigerian Communication Ability: Effective Geospatial Engineer Required: No Beliefs That Will Affect Care: None Current Living Situation: Spouse and Family Current Living Situation Comment: Patient lives at home with his and son Other Information That Helps Us Care for You: No Feels Safe at Home: Yes Safety Concerns: Feels Safe At This Time Assistive Devices: None Review of Systems Review of Systems: All systems reviewed & are unremarkable except as noted in HPI & below Physical Exam Constitutional: well developed, well nourished and + ill appearing; no acute distress Neck: normal visual inspection and trachea midline Respiratory: normal respiratory effort; no respiratory distress and no labored breathing Auscultation: + diminished lung sounds (very diminished in Right lower and middle lung) and + rhonchi (left lung, right upper lung ); no crackles, no rales and no wheezes Cardiovascular: Rate/Rhythm: regular rate and regular rhythm Heart Sounds: normal S1 and normal S2; no murmur Vessels: dorsalis pedis pulses present; no JVD Extremities: no edema Skin: no rashes, warm and dry (diaphoretic, +fever) Psychiatric: Orientation: alert, oriented x 3, oriented to person, oriented to place and oriented to time Results & Data Vital Signs (Past 12 Hours) Vital Signs Temp Pulse Pulse Resp BP BP Pulse Ox 10/06/23 08:25 36.8 C 76 19 114/71 95 10/06/23 08:00 10/06/23 07:11 88 20 93 10/06/23 05:14 37.7 C H 28 H 93 10/06/23 04:19 25 H 97 10/06/23 03:45 38.0 C H 100 H 48 H 152/78 H 95 10/05/23 23:47 36.7 C 89 20 136/74 94 10/05/23 22:00 81 O2 Del Method O2 Flow Rate 10/06/23 08:25 Nasal Cannula 4 10/06/23 08:00 Oxymask 4 10/06/23 07:11 Oxymask 3 10/06/23 05:14 Oxymask 6 10/06/23 04:19 Oxymask 6 10/06/23 03:45 Oxymask 6 10/05/23 23:47 Oxymask 6 10/05/23 22:00 Laboratory Results Cardiac Enzymes 10/05/23 10/05/23 10/06/23 Range/Units 16:48 18:58 04:28 AST 71 H 113 H (13-39) U/L Troponin I High Sens 68.1 H* 75.5 H* 170.4 H* D (0-20) pg/ml B-Natriuretic Peptide 247 H (0-100) pg/ml 10/06/23 Range/Units 07:40 AST (13-39) U/L Troponin I High Sens 199.9 H* (0-20) pg/ml B-Natriuretic Peptide (0-100) pg/ml Coagulation 10/05/23 10/06/23 Range/Units 16:48 04:28 PT 11.8 (9.0-12.0) Seconds APTT 34 H (21-31) Seconds B-Natriuretic Peptide 247 H (0-100) pg/ml CBC 10/05/23 10/06/23 Range/Units 16:48 04:28 WBC 17.26 H 15.30 H (4.8-10.8) K/ul RBC 4.87 4.69 L (4.70-6.10) M/uL Hgb 14.5 13.6 L (14.0-18.0) g/dl Hct 40.6 L 38.9 L (42.0-52.0) % Plt Count 211 203 (130-400) K/uL Neut # (Auto) 15.91 H 14.25 H (1.40-6.50) K/uL Lymph # (Auto) 0.56 L 0.37 L (1.20-3.40) K/uL Childress # (Auto) 0.29 0.17 (0.11-0.59) K/uL Eos # (Auto) 0.07 0.05 (0.00-0.50) K/uL Baso # (Auto) 0.09 0.10 (0.00-0.20) K/uL Comprehensive Metabolic Panel 10/05/23 10/05/23 10/06/23 Range/Units 16:48 21:21 00:28 Sodium 126 L 127 L 128 L (136-145) mmol/L Potassium 3.6 3.0 L 3.8 D (3.5-5.1) mmol/L Chloride 92 L 98 99 (98-107) mmol/L Carbon Dioxide 23 19 L 19 L (21-32) mmol/L BUN 21 20 18 (6-23) mg/dl Creatinine 1.25 1.00 0.95 (0.6-1.4) mg/dl Glucose 137 H 132 H 123 H (70-99(Fasting)) mg/dl Calcium 8.6 7.7 L 7.7 L (8.6-10.3) mg/dl Direct Bilirubin 0.3 H (0-0.2) mg/dl AST 71 H (13-39) U/L ALT 35 (7-52) U/L Alkaline Phosphatase 49 (34-104) U/L Total Protein 7.4 (6.0-8.3) gm/dl Albumin 3.6 (3.4-5.0) gm/dl 10/06/23 10/06/23 Range/Units 04:28 07:40 Sodium 128 L 131 L (136-145) mmol/L Potassium 3.8 (3.5-5.1) mmol/L Chloride 100 (98-107) mmol/L Carbon Dioxide 16 L (21-32) mmol/L BUN 17 (6-23) mg/dl Creatinine 0.85 (0.6-1.4) mg/dl Glucose 118 H (70-99(Fasting)) mg/dl Calcium 7.7 L (8.6-10.3) mg/dl Direct Bilirubin 0.3 H (0-0.2) mg/dl AST 113 H (13-39) U/L ALT 47 (7-52) U/L Alkaline Phosphatase 49 (34-104) U/L Total Protein 6.3 (6.0-8.3) gm/dl Albumin 3.0 L (3.4-5.0) gm/dl Intake and Output 10/05/23 10/06/23 10/06/23 22:59 06:59 14:59 Intake Total 1534.167 / 2344.834 810.667 / 2344.834 300 / 300 Output Total 100 / 1550 1450 / 1550 Balance 1434.167 / 794.834 -639.333 / 794.834 300 / 300 Intake: IV 1534.167 / 2344.834 810.667 / 2344.834 300 / 300 Acetaminophen 1,000 mg In 100 100 / 200 100 / 200 ml @ 400 mls/hr IV NOW STA Rx#: [id number] Ampicillin/Sulbactam Sod 3,000 100 / 100 mg In Sodium Chlor 0.9% Mini-B 100 ml @ 100 mls/hr IV Q6H LAHSANDA Rx#:[id number] Azithromycin 500 mg In Dextrose 255 / 255 5% 250 ml @ 127.5 mls/hr IV NOW STA Rx#:[id number] Doxycycline Hyclate 100 mg In 100 / 100 Dextrose 5% Mini-B 100 ml @ 50 mls/hr IV NOW STA Rx#:[id number] Magnesium Sulfate / D5w 1 gm In 100 / 100 100 ml @ 50 mls/hr IV ONE ONE Rx#:[id number] Piperacillin/Tazobactam 4.5 gm 100 / 100 In Dextrose 5% Mini-B 100 ml @ 200 mls/hr IV 0900 ONE Rx#: [id number] Potassium Chloride / Wtr 10 meq 200 / 200 In 100 ml @ 100 mls/hr IV Q1H LASHANDA Rx#:[id number] Sodium Chloride 0.9% 1,000 ml @ 1129.167 / 1539.834 410.667 / 1539.834 80 mls/hr IV .[id number] LASHANDA Rx#: [id number] cefTRIAXone SODIUM 2,000 mg In 50 / 50 50 ml @ 100 mls/hr IV NOW STA Rx#:[id number] Oral 0 / 0 0 / 0 Output: Urine Amount (Catheter) 100 / 1550 1450 / 1550 Cummings/Indwelling 100 / 1550 1450 / 1550 Other: Weight 82.6 kg 81.6 kg Weight Measurement Method Built in Bedscale Built in [facility] (3) Pneumonia Laterality: right Lung location: unspecified part of lung Pneumonia type: due to unspecified organism Qualified Code(s): J18.9 - Pneumonia, unspecified organism
[2023-10-06] MEDS: guaiFENesin 600 MG TABCR PO SCH (10:11)
[2023-10-06] MEDS: PIPER/TAZO 4.5g in D5W MINI-B 100 ML IV ONE (10:11)
--- NOTE | 2023-10-06 12:48 | Hospitalist Progress Note ---
Date of Service October 06, 2023 Assessment & Plan (1) Sepsis: (2) Hypoxia: (3) Pneumonia: (4) Acute metabolic encephalopathy: Plan: Admit to telemetry Patient presenting from home for evaluation of altered mental status In the ED, found to be significantly febrile with temp 40.6, hypoxic at 89%, currently on 4 L OxyMask Labs show WBC 17 K, procalcitonin 8.1, lactic acid 2.0. HR and BP stable. Patient very slow to respond however appears oriented. Denies headache, no nuchal rigidity noted on exam. ABG -pH 7.4, pCO2 27, pO2 67, HCO3 18 consistent with hyperventilation Check CK Fever improved with Tylenol CXR shows right basilar pneumonia Bio fire negative Anaplasma and Babesia smears negative for inclusion bodies S/p ceftriaxone and azithromycin in the ED, will continue with however low threshold to broaden if recurring fever Given severity of illness, will repeat CXR in the a.m. Follow blood cultures /3 remains on 3 L blood culture: pending sputum culture: pending CT chest: 1. There is dense airspace consolidation throughout the right lower lobe, with milder patchy airspace consolidation seen in the upper lobes. This is consistent with multifocal pneumonia/aspiration pneumonitis. Radiographic follow-up to resolution is recommended. 2. Small right and trace left pleural effusions. 3. Cardiomegaly. 4. Mildly enlarged mediastinal lymph nodes are likely reactive. 5. There is fluid/debris within the right mainstem bronchus, as well as within the lower lobe airways. Correlate clinically for evidence of aspiration. 6. Trace perisplenic ascites. 7. Additional findings as above. transition to Zosyn continue doxycycline Added hypertonic saline, Mucinex Continue nebs Continue incentive spirometry, flutter valve Monitor closely (5) Acute hyponatremia: Plan: Na+ 126 Likely hypovolemic hyponatremia in the setting of acute illness/fever Received 1 L NSS in ED, recheck BMP and check q4h Na 131 (6) Elevated troponin: Plan: HS troponin 68.1 -> 75.5--> 170 -->199 Echo Pending no active chest pain Associate Veterinarian consulted DVT PROPHYLAXIS SQ Lovenox plan of care discussed with patient in detail and at length all questions answered he is understanding, agreeable, comfortable with the plan of care Admission and Anticipated Discharge Date Admission Date: October 05, 2023 Subjective ff up for sepsis, pneumonia, etc seen resting in bed, comfortable on 3L NC states he feels somewhat improved compared to last night breathing is ok has occasional cough, no sputum no chest pain, palpitations, dizziness no abdominal pain, nausea no other symptoms Review of Systems Review of Systems: all noted and negative except for above Physical Exam Physical Exam: General- oriented x 3, not in distress, speaks in sentences with no effort or ac cessory muscle use Eyes- anicteric Neck- no JVD Lungs- mild rhonchi bilaterally, no wheezing Heart- normal rate, regular rhythm; no murmurs Abdomen- normal bowel sounds, nondistended, soft, no tenderness Extremities- no pretibial edema, no calf tenderness Neuro- alert, oriented x 3; no gross focal neurologic deficits Skin- warm & dry Results & Data Results & Data Vital Signs (Past 12 Hours) Vital Signs Temp Pulse Resp BP Pulse Ox O2 Del Method O2 Flow Rate 10/06/23 11:45 36.7 C 81 19 113/67 95 Nasal Cannula 3 10/06/23 09:45 77 20 94 Nasal Cannula 4 10/06/23 08:25 36.8 C 76 19 114/71 95 Nasal Cannula 4 10/06/23 08:00 Oxymask 4 10/06/23 07:11 88 20 93 Oxymask 4 10/06/23 05:14 37.7 C H 28 H 93 Oxymask 6 10/06/23 04:19 25 H 97 Oxymask 6 10/06/23 03:45 38.0 C H 100 H 48 H 152/78 H 95 Oxymask 6 all noted and reviewed including below (3) Pneumonia Laterality: right Lung location: unspecified part of lung Pneumonia type: due to unspecified organism Qualified Code(s): J18.9 - Pneumonia, unspecified organism
[2023-10-06] MEDS: PIPERACILLIN/TAZOBACTAM 4.5 GM in DEXTROSE 5% MINI-B 100 ML IV SCH (13:37)
[2023-10-06] MEDS: ACETAMINOPHEN 325 MG TAB PO PRN (15:56)
[2023-10-06] MEDS ORDERED: cefTRIAXone SODIUM 2,000 MG/50 ML BAG IV SCH (16:00)
[2023-10-06] MEDS ORDERED: AZITHROMYCIN 500 MG in DEXTROSE 5% 250 ML IV SCH (18:00)
[2023-10-06] MEDS: DOXYCYCLINE HYCLATE 100 MG CAP PO SCH (20:17)
--- NOTE | 2023-10-07 08:46 | Cardiology Progress Note ---
Date of Service October 07, 2023 Assessment & Plan (1) Sepsis: (2) Hypoxia: (3) Pneumonia: (4) Acute hyponatremia: (5) Elevated troponin: Plan Assessment: 62 year old male admitted for one week of worsening shortness of breath, fevers and alteration in mental status. Chest xray and CT chest confirm multifocal pneumonia with signficant consolidation in the right lung base. labs suggestive of sepsis, blood cultures pending. Troponin elevation with normal EKG. Plan: Patient is acutely ill with pneumonia and likely sepsis. Continued management of acute illness by primary team. supplementing well on O2 therapy at 4lpm via nasal cannula. Troponin elevation noted and will continue to trend to peak. EKG demonstrates NSR with no acute ST-T wave abnormality to suggest acute ischemia and patient denies any symptoms. Suspect that troponin elevation is demand ischemia due to sepsis state. We will trend troponin and obtain echocardiogram to assess overall structure, function and for any wall motion abnormality. We do not recommend starting a Heparin gtt at this time in the setting of sepsis unless there is an acute cardiac change. Continue to monitor closely on telemetry. No signs of volume overload and would recommend gentle IV fluid hydration along with antibiotic protocol for pneumonia. Serum sodium continues to improve, continue to monitor labs closely. 10/07/2023: Patient remains hemodynamically stable, but acutely ill. continued management of acute illness by primary team. Saturating well on 2L via nasal cannula. Troponin peaked and no changes on EKG. Continues to offer no cardiac complaints. Plan is for continued management of his acute infectious process. Echocardiogram pending. Patient will need an ischemic work up at some point, but this may be done outpatient. Case has been discussed with Dr. Koo. Further recommendations regarding plan of care as per his assessment. I spent a total of 30 minutes on the date of service in preparation, delivery, documentation of the care provided to the patient excluding any time spent in the performance of separately billed services. PARMJIT [facility] Admission and Anticipated Discharge Date Admission Date: October 05, 2023 Supervising Physician Co-Signing Physician Notes I have seen and examined the patient and have discussed the case with the provider above. I have reviewed the advanced practitioner's documentation, and I agree with, and take responsibility for that plan of care. Patient's elevated troponins are most likely secondary to demand ischemia in the setting of sepsis/multifocal PNA. Patient denies chest pain and ECG shows no acute ischemic changes. Echocardiogram showed preserved left ventricle ejection fraction with no overt wall motion abnormalities. At some patient will need an ischemic evaluation but for now continue supportive care for his sepsis and pneumonia. We can start statin therapy. I spent a total of 30 minutes on the date of service in preparation, delivery, and documentation of the care provided to this patient, excluding any time spent in the performance of separately billed service Subjective Patient seen and examined in follow up today. Feeling fair. Remains appropriate in responses, but delayed. Continues to appear acutely ill. Denies any chest pain or pressure. Continues on O2 via nasal cannula. Labs, vitals, diagnostics, telemetry and documentation reviewed. Telemetry reviewed showing SR with no acute events overnight. Review of Systems Review of Systems: All systems reviewed & are unremarkable except as noted in HPI & below Physical Exam Constitutional: well developed, well nourished and + ill appearing; no acute d istress Neck: normal visual inspection and trachea midline Respiratory: normal respiratory effort; no respiratory distress and no labored breathing Auscultation: + diminished lung sounds (very diminished in Right lower and middle lung) and + rhonchi (left lung, right upper lung ); no crackles, no rales and no wheezes Cardiovascular: Rate/Rhythm: regular rate and regular rhythm Heart Sounds: normal S1 and normal S2; no murmur Vessels: dorsalis pedis pulses present; no JVD Extremities: no edema Skin: no rashes, warm and dry (diaphoretic, +fever) Psychiatric: Orientation: alert, oriented x 3, oriented to person, oriented to place and oriented to time Results & Data Vital Signs (Past 12 Hours) Vital Signs Temp Pulse Pulse Resp BP Pulse Ox O2 Del Method 10/07/23 07:16 93 H 17 90 Room Air 10/07/23 01:13 36.8 C 10/07/23 01:05 87 18 94 Nasal Cannula 10/06/23 23:00 38.3 C H 89 20 126/72 94 Nasal Cannula 10/06/23 22:41 85 O2 Flow Rate 10/07/23 07:16 10/07/23 01:13 10/07/23 01:05 3 10/06/23 23:00 3 10/06/23 22:41 Laboratory Results Cardiac Enzymes 10/07/23 Range/Units 08:58 Troponin I High Sens 187.6 H* (0-20) pg/ml CBC 10/07/23 Range/Units 08:59 WBC 15.77 H (4.8-10.8) K/ul RBC 4.41 L (4.70-6.10) M/uL Hgb 12.9 L (14.0-18.0) g/dl Hct 37.1 L (42.0-52.0) % Plt Count 213 (130-400) K/uL Neut # (Auto) 14.76 H (1.40-6.50) K/uL Lymph # (Auto) 0.38 L (1.20-3.40) K/uL [place] # (Auto) 0.21 (0.11-0.59) K/uL Eos # (Auto) 0.03 (0.00-0.50) K/uL Baso # (Auto) 0.07 (0.00-0.20) K/uL Comprehensive Metabolic Panel 10/07/23 Range/Units 08:58 Sodium 128 L (136-145) mmol/L Potassium 3.4 L (3.5-5.1) mmol/L Chloride 96 L (98-107) mmol/L Carbon Dioxide 22 (21-32) mmol/L BUN 16 (6-23) mg/dl Creatinine 0.91 (0.6-1.4) mg/dl Glucose 201 H (70-99(Fasting)) mg/dl Calcium 8.0 L (8.6-10.3) mg/dl Intake and Output 10/07/23 10/07/23 10/07/23 06:59 14:59 22:59 Intake Total 200 / 1080 100 / 720 620 / 720 Output Total 700 / 1800 451 / 451 Balance -500 / -720 100 / 269 169 / 269 Intake: IV 100 / 500 100 / 100 Piperacillin/Tazobactam 4.5 gm 100 / 200 100 / 100 In Dextrose 5% Mini-B 100 ml @ 25 mls/hr IV Q8H [facility] Rx#: [id number] Oral 100 / 580 620 / 620 Output: Urine Amount (Catheter) 700 / 1800 450 / 450 Cummings/Indwelling 700 / 1800 450 / 450 # Bowel Movements Other: Weight 81.3 kg Weight Measurement Method Built in Bedscale (3) Pneumonia Laterality: right Lung location: unspecified part of lung Pneumonia type: due to unspecified organism Qualified Code(s): J18.9 - Pneumonia, unspecified organism
[2023-10-07 09:27] LABS: Hematocrit (blood only) 37.1 % (42.0-52.0); Hemoglobin 12.9 g/dl (14.0-18.0); Mean Corpuscular Hemoglobin 29.3 pg (25.0-34.0); Mean Corpuscular Hgb Conc 34.8 g/dL (32.0-36.0); Mean Corpuscular Volume 84.1 fL (80.0-100.0); Mean Platelet Volume 10.7 fL (9.4-12.4); Platelet Count 213 K/uL (130-400); RDW Coefficient of Variation 14.2 % (11.5-14.5); RDW Standard Deviation 43.7 fL (36.4-46.3); Red Blood Count 4.41 M/uL (4.70-6.10); White Blood Count 15.77 K/ul (4.8-10.8)
[2023-10-07 09:27] LABS: BUN Creatinine Ratio 17.6 (10-20); Creatinine Clr Calc Pharmacy 82.5 ml/min; Est GFR (African American) 105.1 ml/min; Est GFR (Non-African American) 90.6 ml/min; Potassium 3.4 mmol/L (3.5-5.1)
[2023-10-07 09:48] LABS: Troponin I High Sensitivity 187.6 pg/ml (0-20)
[2023-10-07 09:49] LABS: Basophils # (auto) 0.07 K/uL (0.00-0.20); Basophils % (auto) 0.4 %; Eosinophils # (auto) 0.03 K/uL (0.00-0.50); Eosinophils % (auto) 0.2 %; Immature Granulocytes # (auto) 0.32 K/uL (0.01-0.20); Lymphocytes # (auto) 0.38 K/uL (1.20-3.40); Lymphocytes % (auto) 2.4 %; Monocytes # (auto) 0.21 K/uL (0.11-0.59); Monocytes % (auto) 1.3 %; Neutrophils # (auto) 14.76 K/uL (1.40-6.50); Neutrophils % (auto) 93.7 %; Toxic Granulation 1+; Toxic Vacuolation 1+
--- NOTE | 2023-10-07 15:10 | Hospitalist Progress Note ---
Date of Service October 07, 2023 Assessment & Plan (1) Sepsis: (2) Hypoxia: (3) Pneumonia: (4) Acute metabolic encephalopathy: Plan: Admit to telemetry Patient presenting from home for evaluation of altered mental status In the ED, found to be significantly febrile with temp 40.6, hypoxic at 89%, currently on 4 L OxyMask Labs show WBC 17 K, procalcitonin 8.1, lactic acid 2.0. HR and BP stable. Patient very slow to respond however appears oriented. Denies headache, no nuchal rigidity noted on exam. ABG -pH 7.4, pCO2 27, pO2 67, HCO3 18 consistent with hyperventilation Check CK Fever improved with Tylenol CXR shows right basilar pneumonia Bio fire negative Anaplasma and Babesia smears negative for inclusion bodies S/p ceftriaxone and azithromycin in the ED, will continue with however low threshold to broaden if recurring fever Given severity of illness, will repeat CXR in the a.m. Follow blood cultures 10/06 remains on 2 L blood culture: negative so far sputum culture: pending collection CT chest: 1. There is dense airspace consolidation throughout the right lower lobe, with milder patchy airspace consolidation seen in the upper lobes. This is consistent with multifocal pneumonia/aspiration pneumonitis. Radiographic follow-up to resolution is recommended. 2. Small right and trace left pleural effusions. 3. Cardiomegaly. 4. Mildly enlarged mediastinal lymph nodes are likely reactive. 5. There is fluid/debris within the right mainstem bronchus, as well as within the lower lobe airways. Correlate clinically for evidence of aspiration. 6. Trace perisplenic ascites. 7. Additional findings as above. gradually improving continue Zosyn + Doxycycline hypertonic saline, Mucinex, nebs Continue incentive spirometry, flutter valve (5) Acute hyponatremia: Plan: Na+ 126 Likely hypovolemic hyponatremia in the setting of acute illness/fever Na 128 monitor (6) Elevated troponin: Plan: HS troponin 68.1 -> 75.5--> 170 -->199-->187 Echo: EF 50 to 55% Right ventricle is minimally dilated Right ventricular systolic function normal Mild mitral regurgitation Bubble study is positive for a right to left shunt possible small PFO/ASD no active chest pain Bank Representative consulted Will start aspirin 80 mg for small PFO/ASD 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 health coach DVT PROPHYLAXIS SQ Lovenox plan of care discussed with patient in detail and at length all questions answered he is understanding, agreeable, comfortable with the plan of care Admission and Anticipated Discharge Date Admission Date: October 05, 2023 Subjective ff up for pneumonia, etc seen resting in bed, comfortable oriented x 3 answering questions appropriately states he feels ok overall improved compared to yesterday breathing is slowly improving occasional cough no other new symptoms Review of Systems Review of Systems: all noted and negative except for above Physical Exam Physical Exam: General- oriented x 3, not in distress, speaks in sentences with no effort or accessory muscle use Eyes- anicteric Neck- no JVD Lungs-mild rales BL no wheezing good air entry bilaterally Heart- normal rate, regular rhythm; no murmurs Abdomen- normal bowel sounds, nondistended, soft, nontender Extremities- no pretibial edema, no calf tenderness Neuro- alert, oriented x 3; no gross focal neurologic deficits Skin- warm & dry Results & Data Results & Data Vital Signs (Past 12 Hours) Vital Signs Temp Pulse Pulse Resp BP BP Pulse Ox 10/07/23 15:00 37.4 C 87 19 127/72 93 10/07/23 13:05 74 16 93 10/07/23 12:36 86 10/07/23 10:32 38.5 C H 10/07/23 10:28 39.2 C H 92 H 19 127/72 93 10/07/23 08:29 10/07/23 07:49 37.8 C H 10/07/23 07:30 38.9 C H 98 H 22 127/67 90 10/07/23 07:16 93 H 17 90 O2 Del Method O2 Flow Rate 10/07/23 15:00 Nasal Cannula 2 10/07/23 13:05 Nasal Cannula 2 10/07/23 12:36 10/07/23 10:32 10/07/23 10:28 Nasal Cannula 2 10/07/23 08:29 Nasal Cannula 3 10/07/23 07:49 10/07/23 07:30 Room Air 10/07/23 07:16 Room Air all noted and reviewed including below (3) Pneumonia Laterality: right Lung location: unspecified part of lung Pneumonia type: due to unspecified organism Qualified Code(s): J18.9 - Pneumonia, unspecified organism
[2023-10-07] MEDS: ENOXAPARIN INJ 40 MG/0.4 ML SYR SQ SCH (17:34)
[2023-10-07] MEDS: ASPIRIN 81 MG ECTAB PO SCH (17:34)
[2023-10-07] MEDS: OLANZapine 10 MG/2.1 ML SDV IM PRN (19:59)
--- NOTE | 2023-10-07 22:05 | Electrocardiogram Report ---
Test Reason : Blood Pressure : / mmHG Vent. Rate : 093 BPM Atrial Rate : 093 BPM P-R Int : 134 ms QRS Dur : 108 ms QT Int : 376 ms P-R-T Axes : 000 141 -16 degrees QTc Int : 467 ms Normal sinus rhythm Right axis deviation Low voltage QRS Abnormal ECG No previous ECGs available Confirmed by Abdulaziz Murrieta ([id number]) on 10/07/2023 10:04:46 PM Referred By: REFERRED SELF Confirmed By:Abdulaziz Murrieta
--- NOTE | 2023-10-07 22:22 | Electrocardiogram Report ---
Test Reason : Blood Pressure : / mmHG Vent. Rate : 077 BPM Atrial Rate : 077 BPM P-R Int : 150 ms QRS Dur : 106 ms QT Int : 420 ms P-R-T Axes : 057 056 040 degrees QTc Int : 475 ms Normal sinus rhythm Normal ECG When compared with ECG of 05-OCT-2023 17:19, (unconfirmed) T wave inversion no longer evident in Inferior leads T wave amplitude has increased in Anterior leads Confirmed by Abdulaziz Murrieta ([id number]) on 10/07/2023 10:22:27 PM Referred By: REFERRED SELF Confirmed By:Abdulaziz Murrieta
[2023-10-08 06:48] LABS: Basophils # (auto) 0.07 K/uL (0.00-0.20); Basophils % (auto) 0.5 %; Eosinophils # (auto) 0.01 K/uL (0.00-0.50); Eosinophils % (auto) 0.1 %; Hematocrit (blood only) 36.2 % (42.0-52.0); Hemoglobin 12.6 g/dl (14.0-18.0); Lymphocytes # (auto) 0.83 K/uL (1.20-3.40); Lymphocytes % (auto) 5.6 %; Mean Corpuscular Hemoglobin 29.1 pg (25.0-34.0); Mean Corpuscular Hgb Conc 34.8 g/dL (32.0-36.0); Mean Corpuscular Volume 83.6 fL (80.0-100.0); Mean Platelet Volume 10.8 fL (9.4-12.4); Monocytes # (auto) 0.43 K/uL (0.11-0.59); Monocytes % (auto) 2.9 %; Neutrophils # (auto) 13.06 K/uL (1.40-6.50); Neutrophils % (auto) 88.9 %; Platelet Count 235 K/uL (130-400); RDW Coefficient of Variation 14.2 % (11.5-14.5); RDW Standard Deviation 43.4 fL (36.4-46.3); Red Blood Count 4.33 M/uL (4.70-6.10)
[2023-10-08 07:11] LABS: BUN Creatinine Ratio 20.5 (10-20); Calcium 7.7 mg/dl (8.6-10.3); Creatinine Clr Calc Pharmacy 102.8 ml/min; Est GFR (Non-African American) 100.1 ml/min; Potassium 3.3 mmol/L (3.5-5.1)
--- NOTE | 2023-10-08 09:31 | Hospitalist Progress Note ---
Date of Service October 08, 2023 Assessment & Plan (1) Sepsis: (2) Hypoxia: (3) Pneumonia: (4) Acute metabolic encephalopathy: Plan: Admit to telemetry Patient presenting from home for evaluation of altered mental status In the ED, found to be significantly febrile with temp 40.6, hypoxic at 89%, currently on 4 L OxyMask Labs show WBC 17 K, procalcitonin 8.1, lactic acid 2.0. HR and BP stable. Patient very slow to respond however appears oriented. Denies headache, no nuchal rigidity noted on exam. ABG -pH 7.4, pCO2 27, pO2 67, HCO3 18 consistent with hyperventilation Check CK Fever improved with Tylenol CXR shows right basilar pneumonia Bio fire negative Anaplasma and Babesia smears negative for inclusion bodies S/p ceftriaxone and azithromycin in the ED, will continue with however low threshold to broaden if recurring fever Given severity of illness, will repeat CXR in the a.m. Follow blood cultures 5/5 remains on 2 L blood culture: negative so far sputum culture: pending collection CT chest: 1. There is dense airspace consolidation throughout the right lower lobe, with milder patchy airspace consolidation seen in the upper lobes. This is consistent with multifocal pneumonia/aspiration pneumonitis. Radiographic follow-up to resolution is recommended. 2. Small right and trace left pleural effusions. 3. Cardiomegaly. 4. Mildly enlarged mediastinal lymph nodes are likely reactive. 5. There is fluid/debris within the right mainstem bronchus, as well as within the lower lobe airways. Correlate clinically for evidence of aspiration. 6. Trace perisplenic ascites. 7. Additional findings as above. 5/6 gradually improving continue Zosyn + Doxycycline hypertonic saline, Mucinex, nebs Continue incentive spirometry, flutter valve wean off o2 accordingly (5) Acute hyponatremia: Plan: Na+ 126 Likely hypovolemic hyponatremia in the setting of acute illness/fever likely from SIADH sec to pneumnia Na 128 monitor (6) Elevated troponin: Plan: HS troponin 68.1 -> 75.5--> 170 -->199-->187 Echo: EF 50 to 55% Right ventricle is minimally dilated Right ventricular systolic function normal Mild mitral regurgitation Bubble study is positive for a right to left shunt possible small PFO/ASD no active chest pain Voltmeter Operator consulted Will start aspirin 80 mg for small PFO/ASD 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 phthalic acid purifier DVT PROPHYLAXIS SQ Lovenox Admission and Anticipated Discharge Date Admission Date: October 05, 2023 Subjective ff up for acute hypoxic respiratory failure, pneumonia, etc seen resting in bed, comfortable oriented x 3, not in distress States he feels improved today compared to yesterday Breathing is improving Has occasional productive cough No chest pain, palpitations, dizziness, fevers or chills Appetite still fair but seems to be improving provide No other new symptoms Review of Systems Review of Systems: all noted and negative except for above Physical Exam Physical Exam: General- oriented x 3, not in distress, speaks in sentences with no effort or accessory muscle use Eyes- anicteric Neck- no JVD Lungs- mild rales at the bases no wheezing Heart- normal rate, regular rhythm; no murmurs Abdomen- normal bowel sounds, nondistended, soft, no tenderness Extremities- no pretibial edema, no calf tenderness Neuro- alert, oriented x 3; no gross focal neurologic deficits Skin- warm & dry Results & Data Results & Data Vital Signs (Past 12 Hours) Vital Signs Temp Pulse Pulse Resp BP Pulse Ox O2 Del Method 10/08/23 08:07 37.4 C 79 18 130/70 92 Nasal Cannula 10/08/23 06:55 88 14 90 Nasal Cannula 10/08/23 04:05 38.0 C H 85 19 123/67 92 Nasal Cannula 10/08/23 01:54 91 H 18 90 Nasal Cannula 10/07/23 23:52 36.7 C 89 22 128/75 93 Nasal Cannula 10/07/23 23:10 85 10/07/23 22:22 Nasal Cannula O2 Flow Rate 10/08/23 08:07 3 10/08/23 06:55 3 10/08/23 04:05 3 10/08/23 01:54 2 10/07/23 23:52 3 10/07/23 23:10 10/07/23 22:22 2 all noted and reviewed including below (3) Pneumonia Laterality: right Lung location: unspecified part of lung Pneumonia type: due to unspecified organism Qualified Code(s): J18.9 - Pneumonia, unspecified organism
[2023-10-08] MEDS: ADVANCED PROBIOTIC 625 MG CAPSULE PO SCH (10:18)
[2023-10-08] MEDS: POTASSIUM CHLORIDE CRTAB 20 MEQ TABCR PO STA (10:18)
--- NOTE | 2023-10-08 11:31 | Cardiology Progress Note ---
Date of Service October 08, 2023 Assessment & Plan (1) Acute metabolic encephalopathy: (2) Sepsis: (3) Elevated troponin: (4) Acute hyponatremia: (5) Pneumonia: (6) Hypoxia: Plan Admission with right lower lobe pneumonia with associated hypoxemia, hyponatremia, acute metabolic encephalopathy. Ongoing intermittent fevers, confusion. Legionella Ur Ag detected. Treatment of pneumonia as per Hospitalist Cardiology consultation requested due to elevated troponin - Troponin: 68.1->75.5->170.4->199.9->187.6 pg/mL - EKG's without acute change - TTE with normal wall motion, normal LV systolic function. + Possible small PFO/ASD - Telemetry: Sinus - CT this admission with densely calcified coronary arteries and atherosclerotic calcification of the thoracic aorta. - Demand ischemia. - Continue ASA 81 mg/day. - Check LDL cholesterol, adding statin when LFT's permit. - Outpatient ischemic evaluation, after recovering from the acute pulmonary illness. Admission and Anticipated Discharge Date Admission Date: October 05, 2023 Supervising Physician Co-Signing Physician Notes I have seen and examined the patient and have discussed the case with the provider above. I have reviewed the advanced practitioner's documentation, and I agree with, and take responsibility for that plan of care. Patient personally examined Assessment and plan as outlined above Cardiac status appears stable though patient still remains concerningly ill with hypoxic respiratory failure, persistent febrile illness, confusion and hyponatremia Discussed with hospitalist provider Subjective Patient seen and examined. Chart, medications, and telemetry reviewed. Ongoing intermittent fevers, confusion. Legionella Ur Ag: Detected. Telemetry: Sinus rhythm in the 60's to 80's. October 06, 2023 TTE: EF 50-55%. Mildly dilated RV with normal RV systolic function. Mild MR. Right to left shunt, possible small PFO/ASD. CT this admission notable for densely calcified coronary arteries and atherosclerotic calcification of the thoracic aorta. Review of Systems Review of Systems: Unable to be obtained, confusion Physical Exam Physical Exam: General: Alert to person and place but not to time. HENT: Normocephalic. Atraumatic. Eyes: PER. Conjunctiva pink, sclera clear. Neck: No JVD. No HJR. Heart: RRR. Soft systolic murmur at the LLSB. No rub. Lungs: Diminished. Decreased breath sounds at the right base. Abdomen: +BS. Soft. Nontender. No masses or organomegaly. Extremities: No clubbing, cyanosis, or edema. Neuro: No focal deficits. Pulses: radial=2/4, posterior tibial=2/4. Results & Data Vital Signs (Past 12 Hours) Vital Signs Temp Pulse Pulse Resp BP Pulse Ox O2 Del Method 10/08/23 10:42 37.3 C 81 19 126/73 95 Nasal Cannula 10/08/23 08:07 37.4 C 79 18 130/70 92 Nasal Cannula 10/08/23 08:00 Nasal Cannula 10/08/23 08:00 80 10/08/23 06:55 88 14 90 Nasal Cannula 10/08/23 04:05 38.0 C H 85 19 123/67 92 Nasal Cannula 10/08/23 01:54 91 H 18 90 Nasal Cannula 10/07/23 23:52 36.7 C 89 22 128/75 93 Nasal Cannula O2 Flow Rate 10/08/23 10:42 2 10/08/23 08:07 3 10/08/23 08:00 3 10/08/23 08:00 10/08/23 06:55 3 10/08/23 04:05 3 10/08/23 01:54 2 10/07/23 23:52 3 Laboratory Results CBC 10/08/23 Range/Units 06:12 WBC 14.70 H (4.8-10.8) K/ul RBC 4.33 L (4.70-6.10) M/uL Hgb 12.6 L (14.0-18.0) g/dl Hct 36.2 L (42.0-52.0) % Plt Count 235 (130-400) K/uL Neut # (Auto) 13.06 H (1.40-6.50) K/uL Lymph # (Auto) 0.83 L (1.20-3.40) K/uL [place] # (Auto) 0.43 (0.11-0.59) K/uL Eos # (Auto) 0.01 (0.00-0.50) K/uL Baso # (Auto) 0.07 (0.00-0.20) K/uL Comprehensive Metabolic Panel 10/08/23 Range/Units 06:12 Sodium 128 L (136-145) mmol/L Potassium 3.3 L (3.5-5.1) mmol/L Chloride 96 L (98-107) mmol/L Carbon Dioxide 23 (21-32) mmol/L BUN 15 (6-23) mg/dl Creatinine 0.73 (0.6-1.4) mg/dl Glucose 124 H (70-99(Fasting)) mg/dl Calcium 7.7 L (8.6-10.3) mg/dl Intake and Output 10/07/23 10/08/23 10/08/23 22:59 06:59 14:59 Intake Total 720 / 920 100 / 920 100 / 100 Output Total 451 / 1201 750 / 1201 Balance 269 / -281 -650 / -281 100 / 100 Intake: IV 100 / 300 100 / 300 100 / 100 Piperacillin/Tazobactam 4.5 gm 100 / 300 100 / 300 100 / 100 In Dextrose 5% Mini-B 100 ml @ 25 mls/hr IV Q8H [facility] Rx#: [id number] Oral 620 / 620 Output: Urine Amount (Catheter) 450 / 1200 750 / 1200 Cummings/Indwelling 450 / 1200 750 / 1200 # Bowel Movements (5) Pneumonia Laterality: right Lung location: unspecified part of lung Pneumonia type: due to unspecified organism Qualified Code(s): J18.9 - Pneumonia, unspecified organism
[2023-10-08] MEDS: levoFLOXacin/D5W 750 MG/150 ML BAG IV SCH (13:55)
[2023-10-09] MEDS: MAGNESIUM SULFATE / D5W 1 GM/100 ML BAG IV ONE (04:44)
[2023-10-09] MEDS: FUROSEMIDE INJ 20 MG/2 ML VIAL IV ONE (05:16)
[2023-10-09] MEDS: POTASSIUM CHLORIDE PWD 20 MEQ PACK PO STA (05:16)
[2023-10-09 06:17] LABS: Basophils # (auto) 0.07 K/uL (0.00-0.20); Basophils % (auto) 0.4 %; Eosinophils # (auto) 0.07 K/uL (0.00-0.50); Eosinophils % (auto) 0.4 %; Hematocrit (blood only) 36.5 % (42.0-52.0); Hemoglobin 12.6 g/dl (14.0-18.0); Immature Granulocytes # (auto) 0.66 K/uL (0.01-0.20); Immature Granulocytes % (auto) 4.1 %; Lymphocytes # (auto) 0.96 K/uL (1.20-3.40); Lymphocytes % (auto) 5.9 %; Mean Corpuscular Hemoglobin 29.2 pg (25.0-34.0); Mean Corpuscular Hgb Conc 34.5 g/dL (32.0-36.0); Mean Corpuscular Volume 84.7 fL (80.0-100.0); Mean Platelet Volume 10.5 fL (9.4-12.4); Monocytes # (auto) 0.58 K/uL (0.11-0.59); Monocytes % (auto) 3.6 %; Neutrophils # (auto) 13.94 K/uL (1.40-6.50); Neutrophils % (auto) 85.6 %; Platelet Count 308 K/uL (130-400); RDW Coefficient of Variation 14.2 % (11.5-14.5); RDW Standard Deviation 44.3 fL (36.4-46.3); Red Blood Count 4.31 M/uL (4.70-6.10); White Blood Count 16.28 K/ul (4.8-10.8)
[2023-10-09 06:40] LABS: Calcium 7.8 mg/dl (8.6-10.3); Creatinine Clr Calc Pharmacy 101.4 ml/min; Est GFR (African American) 115.4 ml/min; Est GFR (Non-African American) 99.6 ml/min; Potassium 3.6 mmol/L (3.5-5.1)
--- NOTE | 2023-10-09 06:58 | XRay Report ---
XR chest 1V portable HISTORY: tachypnea COMPARISON: Chest CT 10/06/2023. FINDINGS: No pneumothorax. Trace right pleural effusion, unchanged. The heart remains borderline enla rged. Right lung airspace opacities again noted consistent with a pneumonia. There is a small left up per lobe airspace opacity also identified. No acute fractures. IMPRESSION: Persistent right greater than left airspace opacities likely representing a pneumonia. ACT 112: Negative or not required by law. Electronically signed by: Julien Santana M.D. 10/09/2023 6:57 AM
--- NOTE | 2023-10-09 14:29 | Cardiology Progress Note ---
Date of Service October 09, 2023 Assessment & Plan (1) Acute metabolic encephalopathy: (2) Sepsis: (3) Elevated troponin: (4) Acute hyponatremia: (5) Pneumonia: (6) Hypoxia: Plan Admission with right lower lobe pneumonia with associated hypoxemia, hyponatremia, acute metabolic encephalopathy, abnormal LFTs - Legionella pneumonia. Cardiology consultation requested due to elevated troponin - Troponin: 68.1->75.5->170.4->199.9->187.6 pg/mL - Symptoms and findings not consistent with pericarditis or myocarditis. - No overt angina type symptoms. - EKG's without acute change - TTE OK - normal wall motion, normal LV systolic function, no pericardial effusion. + Possible small PFO/ASD - Telemetry: Sinus throughout - Preliminary blood cultures with no growth. - CT with densely calcified coronary arteries and atherosclerotic calcification of the thoracic aorta. Suspect demand ischemia in the setting of significant pneumonia infection. Recommendations: - Treatment of Legionella pneumonia as per Hospitalist - Continue ASA 81 mg/day. - Address lipids, initiating statin therapy, after recovering from the acute pulmonary illness - Outpatient ischemic evaluation after resolution of the acute pulmonary illness. Admission and Anticipated Discharge Date Admission Date: October 05, 2023 Supervising Physician Co-Signing Physician Notes I have seen and examined the patient and have discussed the case with the provider above. I have reviewed the advanced practitioner's documentation, and I agree with, and take responsibility for that plan of care. Patient personally examined Assessment and plan as outlined above Cardiac status appears stable though patient's remains concerned regarding mental status. Will review with primary provider Subjective Patient seen and examined. Chart, medications, and telemetry reviewed. at bedside. 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 Review of Systems Review of Systems: No chest pain. No palpitations. No difficulty breathing Physical Exam Physical Exam: General: A&Ox3. HENT: Normocephalic. Atraumatic. Eyes: PER. Conjunctiva pink, sclera clear. Neck: No JVD. No HJR. Heart: RRR. Soft systolic murmur at the LLSB. No rub. Lungs: Diminished. Decreased. No wheeze. Abdomen: +BS. Soft. Nontender. No masses or organomegaly. Extremities: No clubbing, cyanosis, or edema. Neuro: No focal deficits. Pulses: radial=2/4, posterior tibial=2/4. Results & Data Vital Signs (Past 12 Hours) Vital Signs Temp Pulse Pulse Resp BP Pulse Ox O2 Del Method 10/09/23 13:00 72 18 94 Nasal Cannula 10/09/23 10:25 37.1 C 74 17 120/71 94 Nasal Cannula 10/09/23 07:52 36.9 C 75 17 123/72 94 Nasal Cannula 10/09/23 07:20 74 10/09/23 07:08 80 18 94 Nasal Cannula 10/09/23 03:16 37.0 C 81 30 H 122/71 93 Nasal Cannula O2 Flow Rate 10/09/23 13:00 2 10/09/23 10:25 3 10/09/23 07:52 3 10/09/23 07:20 10/09/23 07:08 2 10/09/23 03:16 2 Laboratory Results CBC 10/09/23 Range/Units 05:30 WBC 16.28 H (4.8-10.8) K/ul RBC 4.31 L (4.70-6.10) M/uL Hgb 12.6 L (14.0-18.0) g/dl Hct 36.5 L (42.0-52.0) % Plt Count 308 (130-400) K/uL Neut # (Auto) 13.94 H (1.40-6.50) K/uL Lymph # (Auto) 0.96 L (1.20-3.40) K/uL [place] # (Auto) 0.58 (0.11-0.59) K/uL Eos # (Auto) 0.07 (0.00-0.50) K/uL Baso # (Auto) 0.07 (0.00-0.20) K/uL Comprehensive Metabolic Panel 10/09/23 Range/Units 05:30 Sodium 134 L (136-145) mmol/L Potassium 3.6 (3.5-5.1) mmol/L Chloride 100 (98-107) mmol/L Carbon Dioxide 23 (21-32) mmol/L BUN 17 (6-23) mg/dl Creatinine 0.74 (0.6-1.4) mg/dl Glucose 125 H (70-99(Fasting)) mg/dl Calcium 7.8 L (8.6-10.3) mg/dl Intake and Output 10/08/23 10/09/23 10/09/23 22:59 06:59 14:59 Intake Total 490 / 2390 550 / 2390 100 / 100 Output Total 1000 / 3200 1000 / 3200 Balance -510 / -810 -450 / -810 100 / 100 Intake: IV 250 / 550 200 / 550 100 / 100 Magnesium Sulfate / D5w 1 gm In 100 / 100 100 ml @ 50 mls/hr IV ONE ONE Rx#:[id number] Piperacillin/Tazobactam 4.5 gm 100 / 300 100 / 300 100 / 100 In Dextrose 5% Mini-B 100 ml @ 25 mls/hr IV Q8H [facility] Rx#: [id number] levoFLOXacin/D5W 750 mg In 150 150 / 150 ml @ 100 mls/hr IV Q24H [facility] Rx# :[id number] Oral 240 / 1840 350 / 1840 Output: Urine Amount (Catheter) 1000 / 3200 1000 / 3200 Cummings/Indwelling 1000 / 3200 1000 / 3200 Other: # Bowel Movement Diapers 1 Weight 79.9 kg Weight Measurement Method Built in [facility] Diagnostic Findings Chest x-ray with right greater than left airspace opacities Telemetry: Sinus rhythm in the 70s and 80s October 06, 2023 TTE: EF 50-55%. Mildly dilated RV with normal RV systolic function. Mild MR. Right to left shunt, possible small PFO/ASD. CT this admission notable for densely calcified coronary arteries and atherosclerotic calcification of the thoracic aorta. (5) Pneumonia Laterality: right Lung location: unspecified part of lung Pneumonia type: due to unspecified organism Qualified Code(s): J18.9 - Pneumonia, unspecified organism
[2023-10-09 16:27] LABS: Babesia microti DNA Not Detected (Not Detected)
--- NOTE | 2023-10-09 19:40 | Hospitalist Progress Note ---
Date of Service October 09, 2023 delayed entry date of service noted above Assessment & Plan (1) Sepsis: (2) Hypoxia: (3) Pneumonia: (4) Acute metabolic encephalopathy: Plan: Admit to telemetry Patient presenting from home for evaluation of altered mental status In the ED, found to be significantly febrile with temp 40.6, hypoxic at 89%, currently on 4 L OxyMask Labs show WBC 17 K, procalcitonin 8.1, lactic acid 2.0. HR and BP stable. Patient very slow to respond however appears oriented. Denies headache, no nuchal rigidity noted on exam. ABG -pH 7.4, pCO2 27, pO2 67, HCO3 18 consistent with hyperventilation Check CK Fever improved with Tylenol CXR shows right basilar pneumonia Bio fire negative Anaplasma and Babesia smears negative for inclusion bodies S/p ceftriaxone and azithromycin in the ED, will continue with however low threshold to broaden if recurring fever Given severity of illness, will repeat CXR in the a.m. Follow blood cultures 5/ remains on 2 L blood culture: negative so far sputum culture: pending collection CT chest: 1. There is dense airspace consolidation throughout the right lower lobe, with milder patchy airspace consolidation seen in the upper lobes. This is consistent with multifocal pneumonia/aspiration pneumonitis. Radiographic follow-up to resolution is recommended. 2. Small right and trace left pleural effusions. 3. Cardiomegaly. 4. Mildly enlarged mediastinal lymph nodes are likely reactive. 5. There is fluid/debris within the right mainstem bronchus, as well as within the lower lobe airways. Correlate clinically for evidence of aspiration. 6. Trace perisplenic ascites. 7. Additional findings as above. 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 Na 128--Improving to 134 monitor (6) Elevated troponin: Plan: HS troponin 68.1 -> 75.5--> 170 -->199-->187 Echo: EF 50 to 55% Right ventricle is minimally dilated Right ventricular systolic function normal Mild mitral regurgitation Bubble study is positive for a right to left shunt possible small PFO/ASD no active chest pain 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 started aspirin 80 mg for small PFO/ASD 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 assistant track and field coach DVT PROPHYLAXIS SQ Lovenox Disposition lives with family at home PT/OT eval Admission and Anticipated Discharge Date Admission Date: October 05, 2023 Subjective ff up for pneumonia, etc seen resting in bed, comfortable on 2 L NC somewhat weak but oriented x 3, answers questions appropriately states breathing is ok, has occasional cough no chest pain, dyspnea, palpitations, dizziness no chills appetite fair no other symptoms Review of Systems Review of Systems: all noted and negative except for above Physical Exam Physical Exam: General- oriented x 3, not in distress, speaks in sentences with no effort or accessory muscle use Eyes- anicteric Neck- no JVD Lungs- mild rales BL Heart- normal rate, regular rhythm; no murmurs Abdomen- normal bowel sounds, nondistended, soft, nontender Extremities- no pretibial edema, no calf tenderness Neuro- alert, oriented x 3; no gross focal neurologic deficits Skin- warm & dry Results & Data Results & Data Vital Signs (Past 12 Hours) Vital Signs Temp Pulse Pulse Resp BP BP Pulse Ox 10/09/23 16:00 78 10/09/23 15:45 36.9 C 77 17 116/71 94 10/09/23 13:00 72 18 94 10/09/23 10:25 37.1 C 74 17 120/71 94 10/09/23 07:52 36.9 C 75 17 123/72 94 O2 Del Method O2 Flow Rate 10/09/23 16:00 10/09/23 15:45 Room Air 10/09/23 13:00 Nasal Cannula 2 10/09/23 10:25 Nasal Cannula 3 10/09/23 07:52 Nasal Cannula 3 all noted and reviewed including below (3) Pneumonia Laterality: right Lung location: unspecified part of lung Pneumonia type: due to unspecified organism Qualified Code(s): J18.9 - Pneumonia, unspecified organism
[2023-10-10 06:26] LABS: Hematocrit (blood only) 35.6 % (42.0-52.0); Hemoglobin 12.2 g/dl (14.0-18.0); Mean Corpuscular Hemoglobin 29.5 pg (25.0-34.0); Mean Corpuscular Hgb Conc 34.3 g/dL (32.0-36.0); Mean Corpuscular Volume 86.2 fL (80.0-100.0); Mean Platelet Volume 10.2 fL (9.4-12.4); Platelet Count 424 K/uL (130-400); RDW Coefficient of Variation 14.5 % (11.5-14.5); RDW Standard Deviation 45.7 fL (36.4-46.3); Red Blood Count 4.13 M/uL (4.70-6.10); White Blood Count 12.77 K/ul (4.8-10.8)
[2023-10-10 06:48] LABS: BUN Creatinine Ratio 29.2 (10-20); Calcium 7.8 mg/dl (8.6-10.3); Creatinine Clr Calc Pharmacy 115.5 ml/min; Est GFR (African American) 121.7 ml/min; Potassium 3.8 mmol/L (3.5-5.1)
[2023-10-10 06:51] LABS: Basophils # (auto) 0.08 K/uL (0.00-0.20); Basophils % (auto) 0.6 %; Eosinophils % (auto) 1.6 %; Immature Granulocytes # (auto) 0.87 K/uL (0.01-0.20); Immature Granulocytes % (auto) 6.8 %; Lymphocytes # (auto) 1.16 K/uL (1.20-3.40); Lymphocytes % (auto) 9.1 %; Monocytes # (auto) 0.71 K/uL (0.11-0.59); Monocytes % (auto) 5.6 %; Neutrophils # (auto) 9.75 K/uL (1.40-6.50); Neutrophils % (auto) 76.3 %; Toxic Granulation 1+
[2023-10-10 14:09] LABS: Ehrlichia chaff DNA Bld Negative (Negative)
--- NOTE | 2023-10-10 17:27 | Hospitalist Progress Note ---
Date of Service October 10, 2023 Assessment & Plan (1) Sepsis: (2) Hypoxia: (3) Pneumonia: (4) Acute metabolic encephalopathy: Plan: Patient presenting from home for evaluation of altered mental status In the ED, found to be significantly febrile with temp 40.6, hypoxic at 89%, currently on 4 L OxyMask Labs show WBC 17 K, procalcitonin 8.1, lactic acid 2.0. HR and BP stable. Patient very slow to respond however appears oriented. Denies headache, no nuchal rigidity noted on exam. ABG -pH 7.4, pCO2 27, pO2 67, HCO3 18 consistent with hyperventilation Check CK Fever improved with Tylenol CXR shows right basilar pneumonia Bio fire negative Anaplasma and Babesia smears negative for inclusion bodies S/p ceftriaxone and azithromycin in the ED, will continue with however low threshold to broaden if recurring fever Given severity of illness, will repeat CXR in the a.m. Follow blood cultures-have been negative Urine Legionella came back positive Antibiotics have been changed to IV Levaquin since yesterday 10/09/2023 Has been feeling much better with improvement in confusion and general wellbeing Will continue PT and OT evaluation CT chest: 1. There is dense airspace consolidation throughout the right lower lobe, with milder patchy airspace consolidation seen in the upper lobes. This is consistent with multifocal pneumonia/aspiration pneumonitis. Radiographic follow-up to resolution is recommended. 2. Small right and trace left pleural effusions. 3. Cardiomegaly. 4. Mildly enlarged mediastinal lymph nodes are likely reactive. 5. There is fluid/debris within the right mainstem bronchus, as well as within the lower lobe airways. Correlate clinically for evidence of aspiration. 6. Trace perisplenic ascites. 7. Additional findings as above. 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 started aspirin 80 mg for small PFO/ASD 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 paint crew supervisor No more cardiac symptoms DVT PROPHYLAXIS SQ Lovenox Disposition lives with family at home PT/OT eval Admission and Anticipated Discharge Date Admission Date: October 05, 2023 Subjective 10/10/2023 The patient was seen and examined in telemetry unit He has been feeling much better and the confusion is improved Remains generally weak but denies any other significant symptoms Has been getting physical therapy Review of Systems Review of Systems: All systems reviewed and are unremarkable except as noted below Physical Exam Physical Exam: Lying in bed without any acute distress Constitutional: well developed, well nourished and + ill appearing Eyes: PERRL, conjunctivae normal, anicteric sclerae ENMT: external ear and nose normal, oropharynx normal Neck: trachea midline, no thyromegaly Respiratory: no respiratory distress Auscultation: + diminished lung sounds and + crackles (Crepitus on the right side at the base) Cardiovascular: Rate/Rhythm: regular rate and regular rhythm; not tachycardic Heart Sounds: normal S1 and normal S2; no murmur Extremities: no edema Gastrointestinal (Abdomen): Inspection/Auscultation: normal bowel sounds; abdomen not distended Percussion/Palpation: abdomen soft; abdomen nontender Musculoskeletal: No acute arthritis involving any of the joints Neurologic: normal touch/pain/proprioception and moves all extremities; no focal motor deficits Lymphatic: no cervical or axillary lymphadenopathy Results & Data Results & Data Vital Signs (Past 12 Hours) Vital Signs Temp Pulse Pulse Pulse Resp BP BP 10/10/23 16:20 65 10/10/23 13:03 87 20 10/10/23 11:47 37.4 C 71 18 115/65 10/10/23 08:41 63 10/10/23 08:29 37.2 C 71 19 117/69 10/10/23 08:18 10/10/23 07:05 68 14 Pulse Ox O2 Del Method O2 Flow Rate 10/10/23 16:20 10/10/23 13:03 93 Nasal Cannula 1 10/10/23 11:47 95 Nasal Cannula 2 10/10/23 08:41 10/10/23 08:29 93 Nasal Cannula 3 10/10/23 08:18 Nasal Cannula 3 10/10/23 07:05 96 Nasal Cannula 4 Laboratory Results Short CBC 10/10/23 Range/Units 05:20 WBC 12.77 H (4.8-10.8) K/ul Hgb 12.2 L (14.0-18.0) g/dl Hct 35.6 L (42.0-52.0) % Plt Count 424 H (130-400) K/uL BMP 10/10/23 05:20 Sodium 134 L Potassium 3.8 Chloride 100 Carbon Dioxide 25 BUN 19 Creatinine 0.65 Glucose 109 H Calcium 7.8 L Medications Administered Current Inpatient Medications Acetaminophen (Acetaminophen 325 Mg Tab) 650 mg PO Q4H PRN PRN Reason: Pain or Fever Stop: 11/04/23 20:54 Last Admin: 10/08/23 15:52 Dose: 650 mg Aspirin (Aspirin 81 Mg Ectab) 81 mg PO QAM [facility] Stop: 11/06/23 15:29 Last Admin: 10/10/23 09:06 Dose: 81 mg Enoxaparin Sodium (Enoxaparin Inj 40 Mg/0.4 Ml Syr) 40 mg SQ Q24H [facility] Stop: 11/06/23 15:59 Last Admin: 10/10/23 16:36 Dose: 40 mg Guaifenesin (Guaifenesin 600 Mg Tabcr) 1,200 mg PO Q12 [facility] Stop: 11/05/23 08:59 Last Admin: 10/10/23 09:06 Dose: 1,200 mg Levofloxacin/Dextrose (Levaquin/D5w) 750 mg in 150 mls @ 100 mls/hr IV Q24H [facility]; Protocol Stop: 10/15/23 13:59 Last Infusion: 10/10/23 16:09 Dose: Infused Ipratropium [place] (Ipratropium [place] Neb Soln 0.02% 0.5mg/2.5ml Vial) 0.5 mg INH Q6R [facility] Stop: 11/05/23 06:59 Last Admin: 10/10/23 13:02 Dose: 0.5 mg Lactobacillus Acidophilus (Advanced Probiotic 625 Mg Capsule) 1,250 mg PO DAILY [facility] Stop: 11/07/23 09:29 Last Admin: 10/10/23 09:06 Dose: 1,250 mg Levalbuterol HCl (Levalbuterol 1.25 Mg/3 Ml Neb) 1.25 mg NEB Q6R [facility] Stop: 11/05/23 06:59 Last Admin: 10/10/23 13:02 Dose: 1.25 mg Olanzapine (Olanzapine 10 Mg/2.1 Ml Sdv) 2.5 mg IM Q4H PRN PRN Reason: Agitation Stop: 11/06/23 06:53 Last Admin: 10/07/23 19:59 Dose: 2.5 mg Sodium Chloride (Sodium Chlor 7% 4 Ml Neb) 4 ml NEB BIDR [facility] Stop: 11/05/23 08:19 Last Admin: 10/10/23 07:04 Dose: 4 ml (3) Pneumonia Laterality: right Lung location: unspecified part of lung Pneumonia type: due to unspecified organism Qualified Code(s): J18.9 - Pneumonia, unspecified organism
[2023-10-11 06:28] LABS: Hematocrit (blood only) 35.5 % (42.0-52.0); Hemoglobin 12.1 g/dl (14.0-18.0); Mean Corpuscular Hemoglobin 29.4 pg (25.0-34.0); Mean Corpuscular Hgb Conc 34.1 g/dL (32.0-36.0); Mean Corpuscular Volume 86.2 fL (80.0-100.0); Mean Platelet Volume 9.5 fL (9.4-12.4); Platelet Count 533 K/uL (130-400); RDW Coefficient of Variation 14.4 % (11.5-14.5); RDW Standard Deviation 45.3 fL (36.4-46.3); Red Blood Count 4.12 M/uL (4.70-6.10); White Blood Count 15.23 K/ul (4.8-10.8)
[2023-10-11 06:41] LABS: BUN Creatinine Ratio 32.8 (10-20); Calcium 7.8 mg/dl (8.6-10.3); Est GFR (African American) 124.9 ml/min; Est GFR (Non-African American) 107.8 ml/min; Potassium 4.5 mmol/L (3.5-5.1)
[2023-10-11 06:51] LABS: Basophils % (auto) 0.7 %; Eosinophils # (auto) 0.17 K/uL (0.00-0.50); Eosinophils % (auto) 1.1 %; Immature Granulocytes # (auto) 0.99 K/uL (0.01-0.20); Immature Granulocytes % (auto) 6.5 %; Lymphocytes # (auto) 1.55 K/uL (1.20-3.40); Lymphocytes % (auto) 10.2 %; Monocytes % (auto) 4.6 %; Neutrophils # (auto) 11.72 K/uL (1.40-6.50); Neutrophils % (auto) 76.9 %; Toxic Granulation 1+
--- NOTE | 2023-10-11 17:49 | Hospitalist Progress Note ---
Date of Service October 11, 2023 Assessment & Plan (1) Sepsis: (2) Hypoxia: (3) Pneumonia: (4) Acute metabolic encephalopathy: Plan: Patient presenting from home for evaluation of altered mental status In the ED, found to be significantly febrile with temp 40.6, hypoxic at 89%, currently on 4 L OxyMask Labs show WBC 17 K, procalcitonin 8.1, lactic acid 2.0. HR and BP stable. Patient very slow to respond however appears oriented. Denies headache, no nuchal rigidity noted on exam. ABG -pH 7.4, pCO2 27, pO2 67, HCO3 18 consistent with hyperventilation Check CK Fever improved with Tylenol CXR shows right basilar pneumonia Bio fire negative Anaplasma and Babesia smears negative for inclusion bodies S/p ceftriaxone and azithromycin in the ED, will continue with however low threshold to broaden if recurring fever Given severity of illness, will repeat CXR in the a.m. Follow blood cultures-have been negative Urine Legionella came back positive Antibiotics have been changed to IV Levaquin since yesterday 10/09/2023 Has been feeling much better with improvement in confusion and general Clinically much better Will get PT and OT evaluation and possible discharge tomorrow Will get chest x-ray tomorrow morning CT chest: 1. There is dense airspace consolidation throughout the right lower lobe, with milder patchy airspace consolidation seen in the upper lobes. This is consistent with multifocal pneumonia/aspiration pneumonitis. Radiographic follow-up to resolution is recommended. 2. Small right and trace left pleural effusions. 3. Cardiomegaly. 4. Mildly enlarged mediastinal lymph nodes are likely reactive. 5. There is fluid/debris within the right mainstem bronchus, as well as within the lower lobe airways. Correlate clinically for evidence of aspiration. 6. Trace perisplenic ascites. 7. Additional findings as above. 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 started aspirin 80 mg for small PFO/ASD 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 liquid yeast supervisor No more cardiac symptoms DVT PROPHYLAXIS SQ Lovenox Disposition lives with family at home PT/OT eval Admission and Anticipated Discharge Date Admission Date: October 05, 2023 Subjective 10/10/2023 The patient was seen and examined in telemetry unit He has been feeling much better and the confusion is improved Remains generally weak but denies any other significant symptoms Has been getting physical therapy 10/11/2023 The patient was seen and examined in telemetry unit in presence of the He has been feeling much better today Still requiring oxygen at 2 L and remains weak Will get PT and OT evaluation and possible discharge tomorrow Review of Systems Review of Systems: All systems reviewed and are unremarkable except as noted below Physical Exam Physical Exam: Lying in bed without any acute distress Constitutional: well developed, well nourished and + ill appearing Eyes: PERRL, conjunctivae normal, anicteric sclerae ENMT: external ear and nose normal, oropharynx normal Neck: trachea midline, no thyromegaly Respiratory: no respiratory distress Auscultation: + diminished lung sounds and + crackles (Crepitus on the right side at the base) Cardiovascular: Rate/Rhythm: regular rate and regular rhythm; not tachycardic Heart Sounds: normal S1 and normal S2; no murmur Extremities: no edema Gastrointestinal (Abdomen): Inspection/Auscultation: normal bowel sounds; abdomen not distended Percussion/Palpation: abdomen soft; abdomen nontender Neurologic: normal touch/pain/proprioception and moves all extremities; no focal motor deficits Lymphatic: no cervical or axillary lymphadenopathy Results & Data Results & Data Vital Signs (Past 12 Hours) Vital Signs Temp Pulse Pulse Resp BP Pulse Ox O2 Del Method 10/11/23 17:00 37.2 C 70 17 121/70 94 Nasal Cannula 10/11/23 15:43 74 10/11/23 13:32 76 16 94 Nasal Cannula 10/11/23 12:30 36.7 C 73 18 149/74 H 96 Nasal Cannula 10/11/23 09:00 64 10/11/23 08:52 Nasal Cannula 10/11/23 08:17 37.1 C 69 19 120/69 90 Nasal Cannula 10/11/23 07:16 15 92 Nasal Cannula O2 Flow Rate 10/11/23 17:00 2.0 10/11/23 15:43 10/11/23 13:32 2 10/11/23 12:30 2.5 10/11/23 09:00 10/11/23 08:52 2 10/11/23 08:17 1.0 10/11/23 07:16 1 Laboratory Results Short CBC 10/11/23 Range/Units 05:54 WBC 15.23 H (4.8-10.8) K/ul Hgb 12.1 L (14.0-18.0) g/dl Hct 35.5 L (42.0-52.0) % Plt Count 533 H (130-400) K/uL BMP 10/11/23 05:54 Sodium 134 L Potassium 4.5 Chloride 102 Carbon Dioxide 24 BUN 20 Creatinine 0.61 Glucose 113 H Calcium 7.8 L Medications Administered Current Inpatient Medications Acetaminophen (Acetaminophen 325 Mg Tab) 650 mg PO Q4H PRN PRN Reason: Pain or Fever Stop: 11/04/23 20:54 Last Admin: 10/08/23 15:52 Dose: 650 mg Aspirin (Aspirin 81 Mg Ectab) 81 mg PO QAM [facility] Stop: 11/06/23 15:29 Last Admin: 10/11/23 09:18 Dose: 81 mg Enoxaparin Sodium (Enoxaparin Inj 40 Mg/0.4 Ml Syr) 40 mg SQ Q24H [facility] Stop: 11/06/23 15:59 Last Admin: 10/11/23 15:58 Dose: 40 mg Guaifenesin (Guaifenesin 600 Mg Tabcr) 1,200 mg PO Q12 [facility] Stop: 11/05/23 08:59 Last Admin: 10/11/23 09:17 Dose: 1,200 mg Levofloxacin/Dextrose (Levaquin/D5w) 750 mg in 150 mls @ 100 mls/hr IV Q24H [facility]; Protocol Stop: 10/15/23 13:59 Last Infusion: 10/11/23 16:23 Dose: Infused Ipratropium [place] (Ipratropium [place] Neb Soln 0.02% 0.5mg/2.5ml Vial) 0.5 mg INH Q6R [facility] Stop: 11/05/23 06:59 Last Admin: 10/11/23 13:31 Dose: 0.5 mg Lactobacillus Acidophilus (Advanced Probiotic 625 Mg Capsule) 1,250 mg PO DAILY [facility] Stop: 11/07/23 09:29 Last Admin: 10/11/23 09:18 Dose: 1,250 mg Levalbuterol HCl (Levalbuterol 1.25 Mg/3 Ml Neb) 1.25 mg NEB Q6R [facility] Stop: 11/05/23 06:59 Last Admin: 10/11/23 13:31 Dose: 1.25 mg Olanzapine (Olanzapine 10 Mg/2.1 Ml Sdv) 2.5 mg IM Q4H PRN PRN Reason: Agitation Stop: 11/06/23 06:53 Last Admin: 10/07/23 19:59 Dose: 2.5 mg Sodium Chloride (Sodium Chlor 7% 4 Ml Neb) 4 ml NEB BIDR [facility] Stop: 11/05/23 08:19 Last Admin: 10/11/23 07:16 Dose: 4 ml (3) Pneumonia Laterality: right Lung location: unspecified part of lung Pneumonia type: due to unspecified organism Qualified Code(s): J18.9 - Pneumonia, unspecified organism
[2023-10-12 05:11] LABS: Hematocrit (blood only) 34.7 % (42.0-52.0); Hemoglobin 11.8 g/dl (14.0-18.0); Mean Corpuscular Hemoglobin 29.4 pg (25.0-34.0); Mean Corpuscular Volume 86.5 fL (80.0-100.0); Mean Platelet Volume 9.4 fL (9.4-12.4); Platelet Count 560 K/uL (130-400); RDW Coefficient of Variation 14.5 % (11.5-14.5); RDW Standard Deviation 46.2 fL (36.4-46.3); Red Blood Count 4.01 M/uL (4.70-6.10); White Blood Count 18.46 K/ul (4.8-10.8)
[2023-10-12 05:25] LABS: BUN Creatinine Ratio 33.3 (10-20); Calcium 8.3 mg/dl (8.6-10.3); Creatinine Clr Calc Pharmacy 119.1 ml/min; Est GFR (African American) 123.3 ml/min; Est GFR (Non-African American) 106.4 ml/min; Potassium 4.4 mmol/L (3.5-5.1)
[2023-10-12 06:44] LABS: Basophils # (auto) 0.09 K/uL (0.00-0.20); Basophils % (auto) 0.5 %; Eosinophils # (auto) 0.14 K/uL (0.00-0.50); Eosinophils % (auto) 0.8 %; Immature Granulocytes # (auto) 1.09 K/uL (0.01-0.20); Immature Granulocytes % (auto) 5.9 %; Lymphocytes # (auto) 2.15 K/uL (1.20-3.40); Lymphocytes % (auto) 11.6 %; Monocytes # (auto) 0.82 K/uL (0.11-0.59); Monocytes % (auto) 4.4 %; Neutrophils # (auto) 14.17 K/uL (1.40-6.50); Neutrophils % (auto) 76.8 %
--- NOTE | 2023-10-12 09:16 | XRay Report ---
XR chest 2V PA/lateral HISTORY: Pneumonia COMPARISON: Chest 10/09/2023. FINDINGS: No pneumothorax. No pleural effusions. The cardiac silhouette remains top normal in size. R ight perihilar airspace opacities have slightly improved. Chronic anterior wedging within the mid tho racic spine. IMPRESSION: Right perihilar airspace opacities have slightly improved. This suggests a pneumonia. ACT 112: Negative or not required by law. Electronically signed by: Julien Santana M.D. 10/12/2023 9:15 AM
--- NOTE | 2023-10-12 14:49 | Hospitalist Progress Note ---
Date of Service October 12, 2023 Assessment & Plan (1) Sepsis: (2) Hypoxia: (3) Pneumonia: (4) Acute metabolic encephalopathy: Plan: Patient presenting from home for evaluation of altered mental status In the ED, found to be significantly febrile with temp 40.6, hypoxic at 89%, currently on 4 L OxyMask Labs show WBC 17 K, procalcitonin 8.1, lactic acid 2.0. HR and BP stable. Patient very slow to respond however appears oriented. Denies headache, no nuchal rigidity noted on exam. ABG -pH 7.4, pCO2 27, pO2 67, HCO3 18 consistent with hyperventilation Check CK Fever improved with Tylenol CXR shows right basilar pneumonia Bio fire negative Anaplasma and Babesia smears negative for inclusion bodies S/p ceftriaxone and azithromycin in the ED, will continue with however low threshold to broaden if recurring fever Given severity of illness, will repeat CXR in the a.m. Follow blood cultures-have been negative Urine Legionella came back positive Antibiotics have been changed to IV Levaquin since yesterday 10/09/2023 Has been feeling much better with improvement in confusion and general Clinically much better Will get PT and OT evaluation and possible discharge tomorrow Has had PT evaluation and recommended home Has been ambulating in the hallway without any difficulties Still requiring 2 L to maintain saturation Repeat chest x-ray did show improvement CT chest: 1. There is dense airspace consolidation throughout the right lower lobe, with milder patchy airspace consolidation seen in the upper lobes. This is consistent with multifocal pneumonia/aspiration pneumonitis. Radiographic follow-up to resolution is recommended. 2. Small right and trace left pleural effusions. 3. Cardiomegaly. 4. Mildly enlarged mediastinal lymph nodes are likely reactive. 5. There is fluid/debris within the right mainstem bronchus, as well as within the lower lobe airways. Correlate clinically for evidence of aspiration. 6. Trace perisplenic ascites. 7. Additional findings as above. 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 Na 128--Improving to 134 Will monitor while in the hospital (6) Elevated troponin: Plan: Secondary to demand ischemia HS troponin 68.1 -> 75.5--> 170 -->199-->187 Echo: EF 50 to 55% Right ventricle is minimally dilated Right ventricular systolic function normal Mild mitral regurgitation Bubble study is positive for a right to left shunt possible small PFO/ASD no active chest pain Clamp Remover consulted started aspirin 80 mg for small PFO/ASD 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 striper machine No more cardiac symptoms DVT PROPHYLAXIS SQ Lovenox Disposition lives with family at home PT/OT eval Admission and Anticipated Discharge Date Admission Date: October 05, 2023 Subjective 10/10/2023 The patient was seen and examined in telemetry unit He has been feeling much better and the confusion is improved Remains generally weak but denies any other significant symptoms Has been getting physical therapy 10/11/2023 The patient was seen and examined in telemetry unit in presence of the He has been feeling much better today Still requiring oxygen at 2 L and remains weak Will get PT and OT evaluation and possible discharge tomorrow 10/12/2023 The patient was seen and examined in telemetry unit in presence of the He has been feeling much better but is still requiring 2 L to maintain saturation He has had physical therapy and recommended home Repeat x-ray did show improvement of pneumonia Likely discharge tomorrow Review of Systems Review of Systems: All systems reviewed and are unremarkable except as noted below Physical Exam Physical Exam: Lying in bed without any acute distress Constitutional: well developed, well nourished and + ill appearing Eyes: PERRL, conjunctivae normal, anicteric sclerae ENMT: external ear and nose normal, oropharynx normal Neck: trachea midline, no thyromegaly Respiratory: no respiratory distress Auscultation: + diminished lung sounds and + crackles (Crepitus on the right side at the base) Cardiovascular: Rate/Rhythm: regular rate and regular rhythm; not tachycardic Heart Sounds: normal S1 and normal S2; no murmur Extremities: no edema Gastrointestinal (Abdomen): Inspection/Auscultation: normal bowel sounds; abdomen not distended Percussion/Palpation: abdomen soft; abdomen nontender Neurologic: normal touch/pain/proprioception and moves all extremities; no focal motor deficits Lymphatic: no cervical or axillary lymphadenopathy Results & Data Results & Data Vital Signs (Past 12 Hours) Vital Signs Temp Pulse Pulse Resp BP Pulse Ox Pulse Ox 10/12/23 13:20 64 22 94 10/12/23 12:00 37.0 C 72 17 111/70 97 10/12/23 10:45 93 10/12/23 08:41 89 L 10/12/23 08:41 84 L 10/12/23 08:15 37.1 C 63 18 118/64 90 10/12/23 07:37 59 L 10/12/23 07:32 58 L 20 91 10/12/23 03:57 37.1 C 62 18 109/63 91 Pulse Ox Pulse Ox O2 Del Method O2 Flow Rate O2 Flow Rate O2 Flow Rate O2 Flow Rate 10/12/23 13:20 Nasal Cannula 2 10/12/23 12:00 Nasal Cannula 2.0 10/12/23 10:45 97 89 L 2 2 2 10/12/23 08:41 Nasal Cannula 2 10/12/23 08:41 Room Air 10/12/23 08:15 Room Air 10/12/23 07:37 10/12/23 07:32 Room Air 10/12/23 03:57 Room Air Laboratory Results Short CBC 10/12/23 Range/Units 04:29 WBC 18.46 H (4.8-10.8) K/ul Hgb 11.8 L (14.0-18.0) g/dl Hct 34.7 L (42.0-52.0) % Plt Count 560 H (130-400) K/uL BMP 10/12/23 04:29 Sodium 133 L Potassium 4.4 Chloride 104 Carbon Dioxide 22 BUN 21 Creatinine 0.63 Glucose 113 H Calcium 8.3 L Medications Administered Current Inpatient Medications Acetaminophen (Acetaminophen 325 Mg Tab) 650 mg PO Q4H PRN PRN Reason: Pain or Fever Stop: 11/04/23 20:54 Last Admin: 10/08/23 15:52 Dose: 650 mg Aspirin (Aspirin 81 Mg Ectab) 81 mg PO QAM [facility] Stop: 11/06/23 15:29 Last Admin: 10/12/23 08:48 Dose: 81 mg Enoxaparin Sodium (Enoxaparin Inj 40 Mg/0.4 Ml Syr) 40 mg SQ Q24H [facility] Stop: 11/06/23 15:59 Last Admin: 10/11/23 15:58 Dose: 40 mg Guaifenesin (Guaifenesin 600 Mg Tabcr) 1,200 mg PO Q12 [facility] Stop: 11/05/23 08:59 Last Admin: 10/12/23 08:46 Dose: 1,200 mg Levofloxacin/Dextrose (Levaquin/D5w) 750 mg in 150 mls @ 100 mls/hr IV Q24H [facility]; Protocol Stop: 10/15/23 13:59 Last Admin: 10/12/23 14:17 Dose: 100 mls/hr Ipratropium [place] (Ipratropium [place] Neb Soln 0.02% 0.5mg/2.5ml Vial) 0.5 mg INH Q6R [facility] Stop: 11/05/23 06:59 Last Admin: 10/12/23 13:16 Dose: 0.5 mg Lactobacillus Acidophilus (Advanced Probiotic 625 Mg Capsule) 1,250 mg PO DAILY [facility] Stop: 11/07/23 09:29 Last Admin: 10/12/23 08:48 Dose: 1,250 mg Levalbuterol HCl (Levalbuterol 1.25 Mg/3 Ml Neb) 1.25 mg NEB Q6R [facility] Stop: 11/05/23 06:59 Last Admin: 10/12/23 13:16 Dose: 1.25 mg Olanzapine (Olanzapine 10 Mg/2.1 Ml Sdv) 2.5 mg IM Q4H PRN PRN Reason: Agitation Stop: 11/06/23 06:53 Last Admin: 10/07/23 19:59 Dose: 2.5 mg Sodium Chloride (Sodium Chlor 7% 4 Ml Neb) 4 ml NEB BIDR [facility] Stop: 11/05/23 08:19 Last Admin: 10/12/23 07:29 Dose: 4 ml (3) Pneumonia Laterality: right Lung location: unspecified part of lung Pneumonia type: due to unspecified organism Qualified Code(s): J18.9 - Pneumonia, unspecified organism
[2023-10-13 05:04] LABS: BUN Creatinine Ratio 28.2 (10-20); Calcium 8.5 mg/dl (8.6-10.3); Creatinine Clr Calc Pharmacy 105.7 ml/min; Est GFR (African American) 117.4 ml/min; Est GFR (Non-African American) 101.3 ml/min; Magnesium 2.3 mg/dl (1.7-2.4); Potassium 4.3 mmol/L (3.5-5.1)
--- NOTE | 2023-10-13 11:34 | Hospitalist Progress Note ---
Date of Service October 13, 2023 Assessment & Plan (1) Sepsis: (2) Hypoxia: (3) Pneumonia: (4) Acute metabolic encephalopathy: Plan: Patient presenting from home for evaluation of altered mental status In the ED, found to be significantly febrile with temp 40.6, hypoxic at 89%, currently on 4 L OxyMask Labs show WBC 17 K, procalcitonin 8.1, lactic acid 2.0. HR and BP stable. Patient very slow to respond however appears oriented. Denies headache, no nuchal rigidity noted on exam. ABG -pH 7.4, pCO2 27, pO2 67, HCO3 18 consistent with hyperventilation Check CK Fever improved with Tylenol CXR shows right basilar pneumonia Bio fire negative Anaplasma and Babesia smears negative for inclusion bodies S/p ceftriaxone and azithromycin in the ED, will continue with however low threshold to broaden if recurring fever Given severity of illness, will repeat CXR in the a.m. Follow blood cultures-have been negative Urine Legionella came back positive Antibiotics have been changed to IV Levaquin since yesterday 10/09/2023 Has been feeling much better with improvement in confusion and general Clinically much better Will get PT and OT evaluation and possible discharge tomorrow Has had PT evaluation and recommended home Has been ambulating in the hallway without any difficulties Still requiring 2 L to maintain saturation Repeat chest x-ray did show improvement Clinically much better without any cough and no shortness of breath at rest Has had 2 steps O2 saturation test-he does not require any oxygen White count noted to be elevated 18,000 and the patient is having more cough and generally weak Will not this discharge him today Repeat CBC tomorrow and if not any better will get CAT scan of the chest to rule out any effusion CT chest: 1. There is dense airspace consolidation throughout the right lower lobe, with milder patchy airspace consolidation seen in the upper lobes. This is consistent with multifocal pneumonia/aspiration pneumonitis. Radiographic follow-up to resolution is recommended. 2. Small right and trace left pleural effusions. 3. Cardiomegaly. 4. Mildly enlarged mediastinal lymph nodes are likely reactive. 5. There is fluid/debris within the right mainstem bronchus, as well as within the lower lobe airways. Correlate clinically for evidence of aspiration. 6. Trace perisplenic ascites. 7. Additional findings as above. 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 Na 128--Improving to 134 Will monitor while in the hospital Sodium level has gone up to 134 (6) Elevated troponin: Plan: Secondary to demand ischemia HS troponin 68.1 -> 75.5--> 170 -->199-->187 Echo: EF 50 to 55% Right ventricle is minimally dilated Right ventricular systolic function normal Mild mitral regurgitation Bubble study is positive for a right to left shunt possible small PFO/ASD no active chest pain Application Dba consulted started aspirin 80 mg for small PFO/ASD 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 artificial breeding 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 No more cardiac symptoms DVT PROPHYLAXIS SQ Lovenox Disposition lives with family at home PT/OT eval Admission and Anticipated Discharge Date Admission Date: October 05, 2023 Subjective 10/10/2023 The patient was seen and examined in telemetry unit He has been feeling much better and the confusion is improved Remains generally weak but denies any other significant symptoms Has been getting physical therapy 10/11/2023 The patient was seen and examined in telemetry unit in presence of the He has been feeling much better today Still requiring oxygen at 2 L and remains weak Will get PT and OT evaluation and possible discharge tomorrow 10/12/2023 The patient was seen and examined in telemetry unit in presence of the He has been feeling much better but is still requiring 2 L to maintain saturation He has had physical therapy and recommended home Repeat x-ray did show improvement of pneumonia Likely discharge tomorrow 10/13/2023 The patient was seen and examined in telemetry unit in the presence of the He has been feeling much better Remains minimally weak Has been ambulating without any difficulties Does not require any oxygen on 2 steps Review of Systems Review of Systems: All systems reviewed and are unremarkable except as noted below Physical Exam Physical Exam: Lying in bed without any acute distress Constitutional: well developed, well nourished and + ill appearing Eyes: PERRL, conjunctivae normal, anicteric sclerae ENMT: external ear and nose normal, oropharynx normal Neck: trachea midline, no thyromegaly Respiratory: no respiratory distress Auscultation: + diminished lung sounds and + crackles (Crepitus on the right side at the base) Cardiovascular: Rate/Rhythm: regular rate and regular rhythm; not tachycardic Heart Sounds: normal S1 and normal S2; no murmur Extremities: no edema Gastrointestinal (Abdomen): Inspection/Auscultation: normal bowel sounds; abdomen not distended Percussion/Palpation: abdomen soft; abdomen nontender Neurologic: normal touch/pain/proprioception and moves all extremities; no focal motor deficits Lymphatic: no cervical or axillary lymphadenopathy Results & Data Results & Data Vital Signs (Past 12 Hours) Vital Signs Temp Pulse Pulse Pulse Pulse Resp Resp 10/13/23 10:20 96 H 79 21 10/13/23 08:04 36.5 C 71 20 10/13/23 07:30 10/13/23 07:11 53 L 10/13/23 07:02 80 16 10/13/23 03:27 36.5 C 58 L 18 10/13/23 00:46 55 L 17 Resp BP Pulse Ox Pulse Ox Pulse Ox O2 Del Method O2 Flow Rate 10/13/23 10:20 18 93 94 10/13/23 08:04 113/68 92 Room Air 10/13/23 07:30 Nasal Cannula 10/13/23 07:11 10/13/23 07:02 98 Nasal Cannula 3 10/13/23 03:27 114/68 96 Nasal Cannula 2 10/13/23 00:46 96 Nasal Cannula 3 Laboratory Results BMP 10/13/23 04:12 Sodium 134 L Potassium 4.3 Chloride 103 Carbon Dioxide 23 BUN 20 Creatinine 0.71 Glucose 113 H Calcium 8.5 L Medications Administered Current Inpatient Medications Acetaminophen (Acetaminophen 325 Mg Tab) 650 mg PO Q4H PRN PRN Reason: Pain or Fever Stop: 11/04/23 20:54 Last Admin: 10/13/23 09:35 Dose: 650 mg Aspirin (Aspirin 81 Mg Ectab) 81 mg PO QAM [facility] Stop: 11/06/23 15:29 Last Admin: 10/13/23 09:29 Dose: 81 mg Enoxaparin Sodium (Enoxaparin Inj 40 Mg/0.4 Ml Syr) 40 mg SQ Q24H [facility] Stop: 11/06/23 15:59 Last Admin: 10/12/23 16:30 Dose: 40 mg Guaifenesin (Guaifenesin 600 Mg Tabcr) 1,200 mg PO Q12 [facility] Stop: 11/05/23 08:59 Last Admin: 10/13/23 09:29 Dose: 1,200 mg Levofloxacin/Dextrose (Levaquin/D5w) 750 mg in 150 mls @ 100 mls/hr IV Q24H [facility]; Protocol Stop: 10/15/23 13:59 Last Infusion: 10/12/23 15:53 Dose: Infused Ipratropium [place] (Ipratropium [place] Neb Soln 0.02% 0.5mg/2.5ml Vial) 0.5 mg INH Q6R [facility] Stop: 11/05/23 06:59 Last Admin: 10/13/23 07:13 Dose: 0.5 mg Lactobacillus Acidophilus (Advanced Probiotic 625 Mg Capsule) 1,250 mg PO DAILY [facility] Stop: 11/07/23 09:29 Last Admin: 10/13/23 09:28 Dose: 1,250 mg Levalbuterol HCl (Levalbuterol 1.25 Mg/3 Ml Neb) 1.25 mg NEB Q6R [facility] Stop: 11/05/23 06:59 Last Admin: 10/13/23 07:13 Dose: 1.25 mg Olanzapine (Olanzapine 10 Mg/2.1 Ml Sdv) 2.5 mg IM Q4H PRN PRN Reason: Agitation Stop: 11/06/23 06:53 Last Admin: 10/07/23 19:59 Dose: 2.5 mg Sodium Chloride (Sodium Chlor 7% 4 Ml Neb) 4 ml NEB BIDR [facility] Stop: 11/05/23 08:19 Last Admin: 10/13/23 07:01 Dose: 4 ml (3) Pneumonia Laterality: right Lung location: unspecified part of lung Pneumonia type: due to unspecified organism Qualified Code(s): J18.9 - Pneumonia, unspecified organism
[2023-10-13 16:51] LABS: Hematocrit (blood only) 37.6 % (42.0-52.0); Hemoglobin 12.7 g/dl (14.0-18.0); Mean Corpuscular Hgb Conc 33.8 g/dL (32.0-36.0); Mean Corpuscular Volume 88.7 fL (80.0-100.0); Mean Platelet Volume 9.2 fL (9.4-12.4); Platelet Count 627 K/uL (130-400); RDW Coefficient of Variation 14.4 % (11.5-14.5); RDW Standard Deviation 46.6 fL (36.4-46.3); Red Blood Count 4.24 M/uL (4.70-6.10); White Blood Count 13.42 K/ul (4.8-10.8)
[2023-10-13 17:09] LABS: Basophils # (auto) 0.08 K/uL (0.00-0.20); Basophils % (auto) 0.6 %; Eosinophils # (auto) 0.12 K/uL (0.00-0.50); Eosinophils % (auto) 0.9 %; Immature Granulocytes # (auto) 0.62 K/uL (0.01-0.20); Immature Granulocytes % (auto) 4.6 %; Lymphocytes # (auto) 2.18 K/uL (1.20-3.40); Lymphocytes % (auto) 16.2 %; Monocytes # (auto) 0.67 K/uL (0.11-0.59); Neutrophils # (auto) 9.75 K/uL (1.40-6.50); Neutrophils % (auto) 72.7 %
[2023-10-14 06:35] LABS: Hematocrit (blood only) 39.2 % (42.0-52.0); Hemoglobin 13.1 g/dl (14.0-18.0); Mean Corpuscular Hemoglobin 29.6 pg (25.0-34.0); Mean Corpuscular Hgb Conc 33.4 g/dL (32.0-36.0); Mean Corpuscular Volume 88.7 fL (80.0-100.0); Mean Platelet Volume 9.2 fL (9.4-12.4); Platelet Count 702 K/uL (130-400); RDW Coefficient of Variation 14.2 % (11.5-14.5); RDW Standard Deviation 45.7 fL (36.4-46.3); Red Blood Count 4.42 M/uL (4.70-6.10); White Blood Count 13.37 K/ul (4.8-10.8)
[2023-10-14 07:19] LABS: Basophils # (auto) 0.07 K/uL (0.00-0.20); Basophils % (auto) 0.5 %; Eosinophils # (auto) 0.14 K/uL (0.00-0.50); Immature Granulocytes # (auto) 0.56 K/uL (0.01-0.20); Immature Granulocytes % (auto) 4.2 %; Lymphocytes % (auto) 18.7 %; Monocytes # (auto) 0.63 K/uL (0.11-0.59); Monocytes % (auto) 4.7 %; Neutrophils # (auto) 9.47 K/uL (1.40-6.50); Neutrophils % (auto) 70.9 %
--- NOTE | 2023-10-14 09:03 | XRay Report ---
XR chest 2V PA/lateral CLINICAL HISTORY: pneumonia TECHNIQUE: 2 views of the chest were obtained. Comparison: Comparison is made to chest radiograph 10/12/2023 FINDINGS: No lines and tubes are seen. The cardiomediastinal silhouette is normal. Right lower lung airspace op acity is again seen, slightly less conspicuous than in the prior exam. No evidence of pleural effusio n or pneumothorax. IMPRESSION: Right lower lung airspace opacity is minimally improved compatible with pneumonia. ACT 112: Negative or not required by law. Electronically signed by: Garland Sy M.D. 10/14/2023 9:01 AM
--- NOTE | 2023-10-14 11:36 | Hospitalist Progress Note ---
Date of Service October 14, 2023 Assessment & Plan (1) Sepsis: (2) Hypoxia: (3) Pneumonia: (4) Acute metabolic encephalopathy: Plan: Patient presenting from home for evaluation of altered mental status In the ED, found to be significantly febrile with temp 40.6, hypoxic at 89%, currently on 4 L OxyMask Labs show WBC 17 K, procalcitonin 8.1, lactic acid 2.0. HR and BP stable. Patient very slow to respond however appears oriented. Denies headache, no nuchal rigidity noted on exam. ABG -pH 7.4, pCO2 27, pO2 67, HCO3 18 consistent with hyperventilation Check CK Fever improved with Tylenol CXR shows right basilar pneumonia Bio fire negative Anaplasma and Babesia smears negative for inclusion bodies S/p ceftriaxone and azithromycin in the ED, will continue with however low threshold to broaden if recurring fever Given severity of illness, will repeat CXR in the a.m. Follow blood cultures-have been negative Urine Legionella came back positive Antibiotics have been changed to IV Levaquin since yesterday 10/09/2023 Has been feeling much better with improvement in confusion and general Clinically much better Will get PT and OT evaluation and possible discharge tomorrow Has had PT evaluation and recommended home Has been ambulating in the hallway without any difficulties Still requiring 2 L to maintain saturation Repeat chest x-ray did show improvement Clinically much better without any cough and no shortness of breath at rest Has had 2 steps O2 saturation test-he does not require any oxygen White count noted to be elevated 18,000 and the patient is having more cough and generally weak Will not this discharge him today Repeat CBC tomorrow and if not any better will get CAT scan of the chest to rule out any effusion remained stable with decreasing white count no fever and or chills, cough is minimal and no shortness of breath at rest worse with ambulation repeat chest x-ray did show much improvement of the pneumonia he will be discharged home this afternoon CT chest: 1. There is dense airspace consolidation throughout the right lower lobe, with milder patchy airspace consolidation seen in the upper lobes. This is consistent with multifocal pneumonia/aspiration pneumonitis. Radiographic follow-up to resolution is recommended. 2. Small right and trace left pleural effusions. 3. Cardiomegaly. 4. Mildly enlarged mediastinal lymph nodes are likely reactive. 5. There is fluid/debris within the right mainstem bronchus, as well as within the lower lobe airways. Correlate clinically for evidence of aspiration. 6. Trace perisplenic ascites. 7. Additional findings as above. 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 Na 128--Improving to 134 Will monitor while in the hospital Sodium level has gone up to 134 (6) Elevated troponin: Plan: Secondary to demand ischemia HS troponin 68.1 -> 75.5--> 170 -->199-->187 Echo: EF 50 to 55% Right ventricle is minimally dilated Right ventricular systolic function normal Mild mitral regurgitation Bubble study is positive for a right to left shunt possible small PFO/ASD no active chest pain Statistical Assistant consulted started aspirin 80 mg for small PFO/ASD 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 No more cardiac symptoms DVT PROPHYLAXIS SQ Lovenox Disposition lives with family at home PT/OT eval Admission and Anticipated Discharge Date Admission Date: October 05, 2023 Subjective 10/10/2023 The patient was seen and examined in telemetry unit He has been feeling much better and the confusion is improved Remains generally weak but denies any other significant symptoms Has been getting physical therapy 10/11/2023 The patient was seen and examined in telemetry unit in presence of the He has been feeling much better today Still requiring oxygen at 2 L and remains weak Will get PT and OT evaluation and possible discharge tomorrow 10/12/2023 The patient was seen and examined in telemetry unit in presence of the He has been feeling much better but is still requiring 2 L to maintain saturation He has had physical therapy and recommended home Repeat x-ray did show improvement of pneumonia Likely discharge tomorrow 10/13/2023 The patient was seen and examined in telemetry unit in the presence of the He has been feeling much better Remains minimally weak Has been ambulating without any difficulties Does not require any oxygen on 2 steps 10/14/2023 the patient was seen and examined in telemetry unit he has been feeling much better denies any significant symptoms of cough and/or shortness of breath has been saturating normally on room air and ambulating without any difficulties and without any desaturation will be discharged home this afternoon Review of Systems Review of Systems: All systems reviewed and are unremarkable except as noted below Physical Exam Physical Exam: Lying in bed without any acute distress Constitutional: well developed, well nourished and + ill appearing Eyes: PERRL, conjunctivae normal, anicteric sclerae ENMT: external ear and nose normal, oropharynx normal Neck: trachea midline, no thyromegaly Respiratory: no respiratory distress Auscultation: + diminished lung sounds and + crackles ( much improvement of the right basilar crackles) Cardiovascular: Rate/Rhythm: regular rate and regular rhythm; not tachycardic Heart Sounds: normal S1 and normal S2; no murmur Extremities: no edema Gastrointestinal (Abdomen): Inspection/Auscultation: normal bowel sounds; abdomen not distended Percussion/Palpation: abdomen soft; abdomen nontender Neurologic: normal touch/pain/proprioception and moves all extremities; no focal motor deficits Lymphatic: no cervical or axillary lymphadenopathy Results & Data Results & Data Vital Signs (Past 12 Hours) Vital Signs Temp Pulse Pulse Resp BP Pulse Ox O2 Del Method 10/14/23 11:24 36.6 C 80 22 116/75 95 Room Air 10/14/23 08:44 49 L 10/14/23 08:15 Nasal Cannula 10/14/23 07:44 36.6 C 61 20 112/72 97 Nebulizer 10/14/23 07:19 76 18 96 Nasal Cannula 10/14/23 03:13 36.5 C 59 L 18 110/64 95 Nasal Cannula 10/14/23 01:05 70 18 95 Nasal Cannula 10/13/23 23:56 36.8 C 60 18 111/68 94 Room Air O2 Flow Rate 10/14/23 11:24 10/14/23 08:44 10/14/23 08:15 2 10/14/23 07:44 10/14/23 07:19 2 10/14/23 03:13 2 10/14/23 01:05 2 10/13/23 23:56 Laboratory Results Short CBC 10/13/23 10/14/23 Range/Units 16:26 05:25 WBC 13.42 H 13.37 H (4.8-10.8) K/ul Hgb 12.7 L 13.1 L (14.0-18.0) g/dl Hct 37.6 L 39.2 L (42.0-52.0) % Plt Count 627 H 702 H (130-400) K/uL Medications Administered Current Inpatient Medications Acetaminophen (Acetaminophen 325 Mg Tab) 650 mg PO Q4H PRN PRN Reason: Pain or Fever Stop: 11/04/23 20:54 Last Admin: 10/13/23 09:35 Dose: 650 mg Aspirin (Aspirin 81 Mg Ectab) 81 mg PO QAM [facility] Stop: 11/06/23 15:29 Last Admin: 10/14/23 09:46 Dose: 81 mg Enoxaparin Sodium (Enoxaparin Inj 40 Mg/0.4 Ml Syr) 40 mg SQ Q24H [facility] Stop: 11/06/23 15:59 Last Admin: 10/13/23 17:39 Dose: 40 mg Guaifenesin (Guaifenesin 600 Mg Tabcr) 1,200 mg PO Q12 [facility] Stop: 11/05/23 08:59 Last Admin: 10/14/23 09:46 Dose: 1,200 mg Levofloxacin/Dextrose (Levaquin/D5w) 750 mg in 150 mls @ 100 mls/hr IV Q24H [facility]; Protocol Stop: 10/15/23 13:59 Last Infusion: 10/13/23 15:29 Dose: Infused Ipratropium [place] (Ipratropium [place] Neb Soln 0.02% 0.5mg/2.5ml Vial) 0.5 mg INH Q6R [facility] Stop: 11/05/23 06:59 Last Admin: 10/14/23 07:29 Dose: 0.5 mg Lactobacillus Acidophilus (Advanced Probiotic 625 Mg Capsule) 1,250 mg PO DAILY [facility] Stop: 11/07/23 09:29 Last Admin: 10/14/23 09:46 Dose: 1,250 mg Levalbuterol HCl (Levalbuterol 1.25 Mg/3 Ml Neb) 1.25 mg NEB Q6R [facility] Stop: 11/05/23 06:59 Last Admin: 10/14/23 07:29 Dose: 1.25 mg Olanzapine (Olanzapine 10 Mg/2.1 Ml Sdv) 2.5 mg IM Q4H PRN PRN Reason: Agitation Stop: 11/06/23 06:53 Last Admin: 10/07/23 19:59 Dose: 2.5 mg Sodium Chloride (Sodium Chlor 7% 4 Ml Neb) 4 ml NEB BIDR [facility] Stop: 11/05/23 08:19 Last Admin: 10/14/23 07:17 Dose: 4 ml (3) Pneumonia Laterality: right Lung location: unspecified part of lung Pneumonia type: due to unspecified organism Qualified Code(s): J18.9 - Pneumonia, unspecified organism
--- NOTE | 2023-10-15 09:04 | Discharge Summary ---
Date of Service October 14, 2023 Admission HPI Per Admitting Provider 62-year-old male without significant past medical history who presents to the ED for evaluation of confusion. History is obtained from the patient and who is the bedside. No outpatient records to review. Patient is a poor historian. Per , patient started to feel ill about 4 days ago. 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 He was able to work half day Sunday however came home early. reports that he has been very fatigued since that time and spending most of his time in bed. Mostly drinking Gatorade, has not had much food. Today, patient was noted to be confused. He was brought to the ED for further evaluation. No other symptoms reported. Denies vomiting and diarrhea. No urinary symptoms. In the ED, patient was significantly febrile at 40.6. Labs show WBC 17 K, Na+ 126, HS troponin 68 -> 75, procalcitonin 8.1. CXR showed Airspace consolidation at the right lung base is typical for pneumonia/aspiration pneumonitis. Patient was given IV Tylenol, azithromycin, ceftriaxone, IVF. Admission Exam Per Admitting Provider Constitutional: WD/WN, vitals as above + ill appearing Eyes: PERRL, conjunctivae normal, anicteric sclerae ENMT: Ears: no external ear abnormality Nose: no external nose abnormality Mouth: + dry oral mucous membranes Neck: no nuchal rigidity Respiratory: + cough (Moist, nonproductive) Ausculta tion: + rhonchi (Bilaterally throughout all lung perdomo) Tachypnea Cardiovascular: Rate/Rhythm: regular rate and regular rhythm Vessels: normal peripheral pulses Extremities: no edema Gastrointestinal (Abdomen): normal bowel sounds, soft, nontender, no hepatosplenomegaly Musculoskeletal: no cyanosis or clubbing, extremities motor strength 5/5 Skin: no rashes Diaphoretic Neurologic: Patient very slow to respond however does appear to be oriented, no gross focal deficit noted Principal Diagnosis Acute metabolic encephalopathy, Legionella pneumonia, hyponatremia Discharge Exam Lying in bed without any acute distress Constitutional well developed, well nourished and + ill appearing Eyes PERRL, conjunctivae normal, anicteric sclerae ENMT external ear and nose normal, oropharynx normal Neck trachea midline, no thyromegaly Respiratory no respiratory distress Auscultation: + diminished lung sounds and + crackles ( much improvement of the right basilar crackles) Cardiovascular Rate/Rhythm: regular rate and regular rhythm; not tachycardic Heart Sounds: normal S1 and normal S2; no murmur Extremities: no edema Gastrointestinal (Abdomen) Inspection/Auscultation: normal bowel sounds; abdomen not distended Percussion/Palpation: abdomen soft; abdomen nontender Neurologic normal touch/pain/proprioception and moves all extremities; no focal motor deficits Lymphatic no cervical or axillary lymphadenopathy Discharge Data Allergies Allergy/AdvReac Type Severity Reaction Status Date / Time No Known Allergies Allergy Unverified 10/05/23 18:53 Consultations 10/05/23 17:55 ED Decision to Admit Stat 10/06/23 08:05 Consult Cardiology Routine Ordered Studies 10/05/23 16:55 CT head/brain wo con Stat 10/06/23 08:15 CT chest diagnostic wo con Stat Hospital Course (1) Sepsis: (2) Hypoxia: (3) Pneumonia: (4) Acute metabolic encephalopathy: Patient presenting from home for evaluation of altered mental status In the ED, found to be significantly febrile with temp 40.6, hypoxic at 89%, currently on 4 L OxyMask Labs show WBC 17 K, procalcitonin 8.1, lactic acid 2.0. HR and BP stable. Patient very slow to respond however appears oriented. Denies headache, no nuchal rigidity noted on exam. ABG -pH 7.4, pCO2 27, pO2 67, HCO3 18 consistent with hyperventilation Check CK Fever improved with Tylenol CXR shows right basilar pneumonia Bio fire negative Anaplasma and Babesia smears negative for inclusion bodies S/p ceftriaxone and azithromycin in the ED, will continue with however low threshold to broaden if recurring fever Given severity of illness, will repeat CXR in the a.m. Follow blood cultures-have been negative Urine Legionella came back positive Antibiotics have been changed to IV Levaquin since yesterday 10/09/2023 Has been feeling much better with improvement in confusion and general Clinically much better Will get PT and OT evaluation and possible discharge tomorrow Has had PT evaluation and recommended home Has been ambulating in the hallway without any difficulties Still requiring 2 L to maintain saturation Repeat chest x-ray did show improvement Clinically much better without any cough and no shortness of breath at rest Has had 2 steps O2 saturation test-he does not require any oxygen White count noted to be elevated 18,000 and the patient is having more cough and generally weak Will not this discharge him today Repeat CBC tomorrow and if not any better will get CAT scan of the chest to rule out any effusion remained stable with decreasing white count no fever and or chills, cough is minimal and no shortness of breath at rest worse with ambulation repeat chest x-ray did show much improvement of the pneumonia he will be discharged home this afternoon CT chest: 1. There is dense airspace consolidation throughout the right lower lobe, with milder patchy airspace consolidation seen in the upper lobes. This is consistent with multifocal pneumonia/aspiration pneumonitis. Radiographic follow-up to resolution is recommended. 2. Small right and trace left pleural effusions. 3. Cardiomegaly. 4. Mildly enlarged mediastinal lymph nodes are likely reactive. 5. There is fluid/debris within the right mainstem bronchus, as well as within the lower lobe airways. Correlate clinically for evidence of aspiration. 6. Trace perisplenic ascites. 7. Additional findings as above. 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 started aspirin 80 mg for small PFO/ASD 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 ship liner No more cardiac symptoms DVT PROPHYLAXIS SQ Lovenox Disposition lives with family at home PT/OT eval Total Time Total Time Spent Total Time Spent (In Minutes): 35 minutes Discharge Plan Discharge Items Patient Disposition: Home - Self-Care Reason For Visit: SEPSIS, PNEUMONIA Discharge Diagnosis: Acute metabolic encephalopathy, Legionella pneumonia, hyponatremia Condition on Discharge: Good Activity: Resume your previous activity Non-emergency contact: Primary Care Provider Call non-emergency contact if: you have any medication questions and your symptoms worsen Follow-up/Referrals: PCP,NO [Primary Care Provider] - (Wants to have an appointment with Blane PCP at [facility]) Diet: Regular Fluids: 1800ml (7 cups) Addtl Attending Provider Instructions: Please take precautions to avoid falls Finish the course of antibiotic You can try some probiotics [id number] and cough medicine [id number] Please Keep appointment with your healthcare provider Check your lipid profile and LFTs as an outpatient to initiate statin therapy and outpatient ischemic evaluation as per the ship liner Pending Studies at Discharge: No Stand-Alone Forms: My [facility], Smoking Cessation Medications and DC Order Prescriptions: New aspirin 81 mg Tablet,Delayed Release (Dr/Ec) 81 mg PO QAM Qty: 30 0RF levofloxacin 750 mg tablet 750 mg PO DAILY 4 Days Qty: 4 0RF Discharge Orders: Discharge Order (Routine); Ordered 10/14/23 Ordered By: Marcelo Singh Admission Data Admit Date/Time: 10/05/23 18:52 Attending Provider: Marcelo Singh Admit Provider: Shelley Church Primary Care Provider: PCP,NO Other Providers: Shelley Church Other Interventions: Discharge Summary Assessment (RN) Last Done: 10/14/23 12:07
== END 2023-10-14 13:36 | disposition home or self-care (01) | DRG 871 ==
LOC: EDBD → ED 16:27 → SUATTDRO 18:52 → 4W 18:52